=== PATIENT | female | born 1990 | race Caucasian/White ===

== ENCOUNTER 2022-04-23 07:54 | Outpatient (CLI) | payer MEDICAID, SELFPAY ==
--- NOTE | 2022-04-23 08:15 | CRLHL7_ITS ---
For Patients: As a result of the Century Cures Act, medical imaging exams and procedure reports are released immediately into your electronic medical record. You may view this report before your referring provider. If you have questions, please contact your health care provider. INDICATION: Evaluate anatomy. COMPARISON: 02/04/2022 TECHNIQUE: Real time nelson scale imaging of the fetus was performed as well as color Doppler analysis of the umbilical vessels. FINDINGS: Sonographic imaging demonstrates a single living intrauterine gestation. Fetus demonstrates a regular cardiac rate of 132 beats per minute. Fetus has a transverse position, head maternal right. The placenta lies posteriorly without evidence of placenta previa. The edge of the placenta is located 2.5 cm from the internal cervical os. Amniotic fluid volume appears normal. Single deepest vertical pocket: 5.1 cm. The cervix is closed and measures 3.5 cm in length. The composite ultrasound gestational age is calculated at 20 weeks 0 days with an estimated sonographic due date of 09/10/2022. The estimated weight is 320 grams which lies at the 32nd %. The following biometric measurements were obtained: Biparietal diameter: 4.7 cm/20 weeks 1 day 47th% Head circumference: 17.3 cm/19 weeks 6 days 28th% Abdominal circumference: 14.6 cm/19 weeks 6 days 35th% Femur length: 3.2 cm/19 weeks 6 days 34th% The HC/AC ratio measures: 1.19 range (1.08-1.25) On anatomic survey, there is a normal appearance of the cerebral ventricles, cavum septi pellucidi, cisterna magna and cerebellum. The nose, lips, and facial profile appear normal. The cervical, thoracic and lumbar spine are well visualized and appear normal. Incomplete visualization of the four-chamber heart view and the left and right ventricular outflow tracts due to position. The diaphragm and stomach appear normal. The kidneys and bladder also appear normal. There is a normal three-vessel cord and cord insertion site. The four extremities appear normal. IMPRESSION: Incomplete visualization of the four-chamber heart and outflow tracts due to position. Remainder of the anatomic survey appears normal. Short-term follow-up suggested. Sonographic gestational age 20 weeks 0 days and sonographic due date of 09/10/2022. Good correlation with dates. Estimated weight 32nd percentile. Dictated by Gerson Antoine MD @ 04/23/2022 9:44:54 AM (Electronically Signed)
== END 2022-04-23 07:55 | disposition home or self-care (01) ==
PROVIDERS: PCP Family Medicine; Visit Provider Advanced Practice Midwife
DX: Z34.92 Encounter for supervision of normal pregnancy, unspecified, second trimester (principal); Z3A.20 20 weeks gestation of pregnancy
CPT/HCPCS: 76805

== ENCOUNTER 2022-05-22 15:18 | Outpatient (CLI) | payer MEDICAID, SELFPAY ==
[2022-05-22 20:02] LABS: Alanine Aminotransferase* 14 U/L (4-35); Aspartate Amino Transferase* 21 U/L (12-35); Blood Urea Nitrogen* 13 mg/dL (5-24); Creatinine* 0.6 mg/dL (0.5-1.5); Estimated Glomerular Filt Rate 124 ml/min; Uric Acid* 4.8 mg/dL (2.2-8.4)
== END 2022-05-22 15:19 | disposition home or self-care (01) ==
PROVIDERS: PCP Family Medicine; Visit Provider Advanced Practice Midwife
DX: I10 Essential (primary) hypertension (principal)
CPT/HCPCS: 82565; 84450; 84460; 84520; 84550

== ENCOUNTER 2022-05-26 10:24 | Outpatient (CLI) | payer MEDICAID, SELFPAY ==
[2022-05-26 11:51] LABS: Total Protein Urine 10 mg/dL
[2022-05-26 11:54] LABS: Creatinine Urine 57.5 mg/dL
[2022-05-26 12:09] LABS: Collection Time Urine 24 Hours; Total Protein 24 Hour Urine 260 mg/dL; Total Volume 24 Hour Urine 2600 ml; Urine Creatinine mg/24 Hour 0 mg/Day
== END 2022-05-26 10:25 | disposition home or self-care (01) ==
LOC: NFLDREF 10:25
PROVIDERS: PCP Family Medicine; Visit Provider Advanced Practice Midwife
DX: Z34.02 Encounter for supervision of normal first pregnancy, second trimester (principal)
CPT/HCPCS: 82570; 84156

== ENCOUNTER 2022-06-18 16:03 | Outpatient (CLI) | payer MEDICAID, SELFPAY ==
--- OUTSIDE RECORDS SUMMARY | 2022-06-18 08:47 | XMS_ITS | Encounter Summary ---
:1990 Author Organization [facility] Address [address] [place] [address] Care Team Providers Name Role Phone Unavailable Primary Care Provider Unavailable Reason for Visit Reason Onset Date Comments Outpatient COVID-19 Testing 09/21/2020 Encounter Details Date Type Department Care Team Description 09/21/2020 External Outreach Department of [facility], In [facility] Medicine in [facility], Respirato ry ([place], [place] C.N.P., D.N.P. Dx) [address] [facility] [address] [place] [address] [place], [place] [phone] [phone] Social History Tobacco Use Types Packs/Day Years Used Date Smoking Tobacco: Never Assessed Sex Assigned at Date Recorded Not on file documented as of this encounter Progress Notes Alisia Browning - 09/21/2020 2:37 PM CST Encounter created for the drive-through COVID-19 testing. WORKER documented in this encounter Plan of Treatment Not on filedocumented as of this encounter Procedures Procedure Name Priority Date/Time Associated Diagnosis Comme nts SARS CORONAVIRUS-2 Routine 09/21/2020 3:26 PM Infection Upper Results for this RNA, V PIN WORKER Respiratory procedure are i n the results section. documented in this encounter Results SARS Coronavirus-2 RNA, V Symptomatic (09/21/2020 3:26 PM PIN WORKER) [facility] Method Time Signature SARS-CoV-2 Swab, 09/22/2020 MKTO Specimen Nasopharynx 4:24 PM PIN WORKER Source SARS CoV-2 Undetected Undetected 09/22/2020 MKTO RNA, TMA 4:24 PM PIN WORKER Comment: SARS-CoV-2 RNA absent. This result does not rule out COVID-19 in the patient, as the sensitivity of the test depends o n the timing of the specimen collection and the quality of the specim en. Result should be correlated with patient's history and clinical presentat ion. ----ADDITIONAL INFORMATION---- This test is performed using the Aptima SARS-CoV-2 assay ([employer] which has received Emergency Use Authori zation (EUA) by the U.S. Food and Drug Administration. Fact sheets for this Emergency Use Autho rization (EUA) assay can be found at the following links: For Healthcare Providers: https://www.LiveBid a.gov/media/509515/download For Patients: https://www.fda.gov/media/ 719672/download Specimen Anatomical Collection Method Collection Time Receive d Time (Source) Location / / Volume Laterality Varies 09/21/2020 3:26 PM 0 (Nasopharynx) PIN WORKER 11:47 PM PIN WORKER Valdez Mckay APRNNLarry., D.N.P. LAB MICROBIOLOGY - GENERAL ORDERABLES Performing Organization Address City/State/ZIP Code Phon e Number [facility] [address] [place] [phone] [place] [address] [place] [address] System in [address] documented in this encounter Visit Diagnoses Diagnosis Infection Upper Respiratory - Primary documented in this encounter Additional Health Concerns Infection Onset Date Last Indicated Resolved Time COVID19 Pending 09/21/2020 09/21/2020 09/22/2020 4:24 PM PIN WORKER documented as of this encounter
--- OUTSIDE RECORDS SUMMARY | 2022-06-18 08:47 | XMS_ITS | Encounter Summary ---
:1990 Author Organization [facility] Address [address] [place] [address] Care Team Providers Name Role Phone Unavailable Primary Care Provider Unavailable Reason for Visit Reason Comments COVID Inquiry Encounter Details Date Type Department Care Team Description 09/21/2020 Clinical Communication Central Appointment REYNA Ram Office in [address] [phone] Social History Tobacco Use Types Packs/Day Years Used Date Smoking Tobacco: Never Assessed Sex Assigned at Date Recorded Not on file documented as of this encounter Miscellaneous Notes Telephone Encounter - Gerson Nunez - 09/21/2020 2:29 PM CST COVID DOS/PASS Screening What is the patient requesting?: COVID-19 Testing Only (End screening - follow local process) Plan: Endpoint recommendation: Testing indicated, sent patient to [facility] located at [address] [place] [address]. When you arrive in the parking lot, using your camera smartphone scan the QR code on the sign and fill out the online form. If you do not have a smartphone or working camera, please ring the doorbell outside the building for service. Testing hours are M-F 9 am to 4 pm and Sat-Sun 9 am to 12:30pm. and Please avoid using public transportation per CDC recommendation. If you do not have personaltransportation please self-quarantine until a personal transportation option is available. *Reminder if sending patient for testing in T or [facility], an email notification is required. HER EDGER documented in this encounter Plan of Treatment Not on filedocumented as of this encounter Visit Diagnoses Not on filedocumented in this encounter
--- OUTSIDE RECORDS SUMMARY | 2022-06-18 08:47 | XMS_ITS | Clinical Summary ---
:1990 Author Organization [employer] [facility] [employer] [facility] [facility] [place] [address] Care Team Providers Name Role Phone Marcus Nelson MD Primary Care Provider Allergies Active Allergy Reactions Severity Noted Date Comments Codeine Nausea Only 02/16/2007 Hydrocodone-Acetaminophen Nausea Only 05/18/2015 Medications Medication Sig Dispensed Refills Start Date End Date Status mirtazapine (REMERON) 45 mg Take 1 Tablet 30 Tablet 2 02/21/20 22 Active tabletIndications: LILLY (45 mg) by (generalized anxiety mouth at disorder), bedtime. Psychophysiological insomnia ARIPiprazole (Abilify) 2 mg Take 1 Tablet 30 Tablet 2 02/21/20 Active tabletIndications: LILLY (2 mg) by (generalized anxiety mouth once disorder), Major depressive daily. disorder, recurrent episode, moderate (HC) Active Problems Problem Noted Date Major depressive disorder, recurrent episode, moderate 09/12/2015 Cannabis dependence, in remission 12/15/2011 LILLY (generalized anxiety disorder) 11/19/2009 Panic disorder without agoraphobia 10/24/2009 Resolved Problems Problem Noted Date Resolved Date Controlled substance agreement signed 06/16/2018 Overview: Signed by Joann Buckner MD 04/06/18. Valdez Archibald LPN, 06/16/2018, 7:31 AM Controlled substance agreement signed 04/08/2018 Controlled substance agreement signed 04/13/2017 Overview: Signed: 04/02/16 Dr. Magen Aquino MD / psychiatry Depressive disorder, not elsewhere classified 01/08/2011 09/12/2015 Cannabis dependence, continuous 09/09/2010 12/15/19 12 Immunizations Name Administration Dates Next Due MMR 12/22/2003 Family History Medical History Relation Name Comments Psychiatric illness Father anxiety Stroke Father Psychiatric illness Maternal Aunt anxiety Relation Name Status Comments Father Alive Half-Brother Alive Half-Sister Alive Maternal Aunt Mother Alive Social History Tobacco Use Types Packs/Day Years Used Date Never Smoker Smokeless Tobacco: Never Used Tobacco Cessation: Counseling Given: Yes Alcohol Use Standard Drinks/Week Comments No 0 (1 standard drink = 0.6 oz pure alcoho l) Sex Assigned at Date Recorded Female 12/12/2021 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 History Last Filed Vital Signs Vital Sign Reading Time Taken Comments Blood Pressure 130/86 06/14/2019 12:44 PM CDT Pulse 65 05/03/2020 3:18 PM patient repor danny CDT Temperature - - Respiratory Rate - - Oxygen Saturation 98% 09/12/2015 10:35 AM TALENT DIRECTOR Inhaled Oxygen Concentration - - Weight 105.2 kg (232 lb) 05/03/2020 3:18 PM patient rep orted CDT Height 162.6 cm (5' 4) 05/03/2020 3:18 PM patient repo rted CDT Body Mass Index 39.82 05/03/2020 3:18 PM CDT Plan of Treatment Health Maintenance Due Date Last Done Comments Tdap 2003 Hepatitis C screening for age 0704/25/2010 18-79 Pap test for age 21-65 05/28/2020 05/28/2017, 01/26/2014, 11/04/2011 BMI (ht and wt on same day) for 05/03/2021 05/03/2020, 11/0 05/2018, age 18+ 04/02/2016, Additional history exists Influenza for age 9-49 06/19/2022 Tetanus booster 01/13/2023 01/13/2013 (Completed outside of [facility]) Depression screening for age 12+ 02/20/2023 02/20/2022, , 12/12/2021, Additional history exists COVID-19 vaccine series Completed 09/02/2021, 03/05/2021, 02/12/2021 Results Not on filefrom Last 3 Months Insurance Payer Benefit Plan / Subscriber ID Effective Dates Phone Addre ss Type Group ESTRELLA DE [place] ROSA [place] [id number] 2021-Present [address] [place] [address] Care Teams Adobe Maker Relationship Specialty Start Date End Date aMrcus Nelson MD PCP - General Family Practice 04/02/16
--- OUTSIDE RECORDS SUMMARY | 2022-06-18 08:47 | XMS_ITS | Clinical Summary ---
:1990 Author Organization [facility] Address [address] [place] [address] Care Team Providers Name Role Phone Unavailable Primary Care Provider Unavailable Source Comments Patient records contain information from all sites at [facility]. For routine questions regarding patient records, call [phone] during business hours, M-F 8:00 AM - 5:00 PM Central Time. Record requests for emergency care only can be directed to [phone] at any time.[facility] Social History Tobacco Use Types Packs/Day Years Used Date Smoking Tobacco: Never Assessed Sex Assigned at Date Recorded Not on file Plan of Treatment Health Maintenance Due Date Last Done Comments Cervical Cancer Screening 1992 HIV Screening 1990 Hepatitis B Vaccines (1 of 1992 3 - 3-dose series) Hepatitis C Screening 1992 Depression Screening 10/19/2021 (Annual PHQ-2) Influenza Vaccine (#1) 2022 08/09/2020, 08/24/2017, 07/03/2016, Additional history exists DTaP,Tdap,and Td Vaccines 01/19/2023 01/19/2013, 12/22/2003 (3 - Td or Tdap) COVID-19 Vaccine Completed 09/02/2021, 03/05/2021, 02/12/2021 Pneumococcal vaccine (0-64 Aged Out No lo nger eligible years) based on patient 's age to complete this topic Insurance Payer Benefit Plan Subscriber ID Effective Dates Phone Address Type / Group [facility] [id number] 2021-Sree [phone] [address] Medicaid HMO t [address] [place] [address]
[2022-06-19 10:14] LABS: Rapid Plasma Reagin (RPR) Non Reactive (Non Reactive)
== END 2022-06-18 16:04 | disposition home or self-care (01) ==
PROVIDERS: PCP Family Medicine; Visit Provider Advanced Practice Midwife
DX: Z34.90 Encounter for supervision of normal pregnancy, unspecified, unspecified trimester (principal)
CPT/HCPCS: 86592

== ENCOUNTER 2022-06-26 09:30 | Outpatient (CLI) | payer MEDICAID, SELFPAY ==
[2022-06-26 08:49] LABS: Glucose Fasting Check 106 mg/dl (60-115)
--- OUTSIDE RECORDS SUMMARY | 2022-06-26 08:53 | XMS_ITS | Clinical Summary ---
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 Obstetrics History Last Filed Vital Signs Vital Sign Reading Time Taken Comments Blood Pressure 130/86 06/14/2019 12:44 PM CDT Pulse 65 05/03/2020 3:18 PM patient repor danny CDT Temperature - - Respiratory Rate - - Oxygen Saturation 98% 09/12/2015 10:35 AM WRAPPER SIZER Inhaled Oxygen Concentration - - Weight 105.2 [...] Tetanus booster 01/13/2023 01/13/2013 (Completed outside of [facility]) Depression screening for age 12+ 02/20/2023 02/20/2022, , 12/12/2021, Additional history exists COVID-19 vaccine series Completed 09/02/2021, 03/05/2021, 02/12/2021 Results Not on filefrom Last 3 Months Insurance Payer Benefit Plan / Subscriber ID Effective Dates Phone Addre ss Type Group ESTRELLA DE [place] ROSA [place] [id number] 2021-Present [address] [place] [address] Care Teams Calliope Player Relationship Specialty Start Date End Date Marcus Nelson MD PCP - General Family Practice 04/02/16
--- OUTSIDE RECORDS SUMMARY | 2022-06-26 08:53 | XMS_ITS | Clinical Summary ---
:1990 Author Organization [facility] Address [address] [place] [address] Care Team Providers Name Role Phone Unavailable Primary Care Provider Unavailable Source Comments Patient records contain information from all sites at [facility]. For routine questions regarding patient records, call [phone] during business hours, M-F 8:00 AM - 5:00 PM Central Time. Record requests for emergency care only can be directed to [phone] at any time.[facility] Social History Tobacco Use Types Packs/Day [...] Effective Dates Phone Address Type / Group [facility] [id number] 2021-Sree [phone] [address] Medicaid HMO t [address] [place] [address]
--- OUTSIDE RECORDS SUMMARY | 2022-06-26 08:53 | XMS_ITS | Encounter Summary ---
:1990 Author Organization [facility] Address [address] [place] [address] Care Team Providers Name Role Phone Unavailable Primary Care Provider Unavailable Reason for Visit Reason Comments COVID Inquiry Encounter Details Date Type Department Care Team Description 09/21/2020 Clinical Communication Central Appointment REYNA Ram Office in [address] [id number] Social History Tobacco Use Types Packs/Day Years Used Date Smoking Tobacco: Never Assessed Sex Assigned at Date Recorded Not on file documented as of this encounter Miscellaneous Notes Telephone Encounter - Gerson Nunez - 09/21/2020 2:29 PM CST COVID DOS/PASS Screening What is the patient requesting?: COVID-19 Testing Only (End screening - follow local process) Plan: Endpoint recommendation: Testing indicated, sent patient to [facility] located at [address] [place] [address]. When you arrive in the parking lot, [...] sending patient for testing in T or [facility], an email notification is required. E MINER documented in this encounter Plan of Treatment Not on filedocumented as of this encounter Visit Diagnoses Not on filedocumented in this encounter
--- OUTSIDE RECORDS SUMMARY | 2022-06-26 08:53 | XMS_ITS | Encounter Summary ---
:1990 Author Organization [facility] Address [address] [place] [address] Care Team Providers Name Role Phone Unavailable Primary Care Provider Unavailable Reason for Visit Reason Onset Date Comments Outpatient COVID-19 Testing 09/21/2020 Encounter Details Date Type Department Care Team Description 09/21/2020 External Outreach Department of [facility], In [facility] Medicine in [facility], Respirato ry ([place], [place] C.N.P., D.N.P. Dx) [address] [facility] [address] [place] [address] [place], [place] [phone] Social History Tobacco Use Types Packs/Day Years Used Date Smoking Tobacco: Never Assessed Sex Assigned at Date Recorded Not on file documented as of this encounter Progress Notes Alisia Browning - 09/21/2020 2:37 PM CST Encounter created for the drive-through COVID-19 testing. MAKER documented in this encounter Plan of Treatment Not on filedocumented as of this encounter Procedures Procedure Name Priority Date/Time Associated Diagnosis Comme nts SARS CORONAVIRUS-2 Routine 09/21/2020 3:26 PM Infection Upper Results for this RNA, V BODY MAKER Respiratory procedure are i n the results section. documented in this encounter Results SARS Coronavirus-2 RNA, V Symptomatic (09/21/2020 3:26 PM BODY MAKER) [facility] Method Time Signature SARS-CoV-2 Swab, 09/22/2020 MKTO Specimen Nasopharynx 4:24 PM BODY MAKER Source SARS CoV-2 Undetected Undetected 09/22/2020 MKTO RNA, TMA 4:24 PM BODY MAKER Comment: SARS-CoV-2 RNA absent. This result does not rule out COVID-19 in the patient, as the sensitivity of the test depends o n the timing of the specimen collection and the quality of the specim en. Result should be correlated with patient's history and clinical presentat ion. ----ADDITIONAL INFORMATION---- This test is performed using the Aptima SARS-CoV-2 assay ([employer] which has received Emergency Use Authori zation (EUA) by the U.S. Food and Drug Administration. Fact sheets for this Emergency Use Autho rization (EUA) assay can be found at the following links: For Healthcare Providers: https://www.Qvolve a.gov/media/527869/download For Patients: https://www.fda.gov/media/ 507174/download Specimen Anatomical Collection Method Collection Time Receive d Time (Source) Location / / Volume Laterality Varies 09/21/2020 3:26 PM 0 (Nasopharynx) BODY MAKER 11:47 PM BODY MAKER Valdez Mckay APRNNLarry., D.N.P. LAB MICROBIOLOGY - GENERAL ORDERABLES Performing Organization Address City/State/ZIP Code Phon e Number [facility]- [address] [place] [phone] [place] [address] [place] [address] System [address] documented in this encounter Visit Diagnoses Diagnosis Infection Upper Respiratory - Primary documented in this encounter Additional Health Concerns Infection Onset Date Last Indicated Resolved Time COVID19 Pending 09/21/2020 09/21/2020 09/22/2020 4:24 PM BODY MAKER documented as of this encounter
[2022-06-26 13:09] LABS: Glucose GTT-Gestational 3 Hr 68 mg/dl (70-140)
[2022-06-26 13:09] LABS: Glucose 1 Hour Gest 194 mg/dl (70-180)
== END 2022-06-26 09:31 | disposition home or self-care (01) ==
PROVIDERS: PCP Family Medicine; Visit Provider Advanced Practice Midwife
DX: Z34.90 Encounter for supervision of normal pregnancy, unspecified, unspecified trimester (principal)
CPT/HCPCS: 82951; 82952

== ENCOUNTER 2022-07-17 12:42 | Outpatient (CLI) | payer MEDICAID, SELFPAY ==
--- OUTSIDE RECORDS SUMMARY | 2022-07-17 12:44 | XMS_ITS | Clinical Summary ---
:1990 Author Organization [facility] Address [address] [place] [address] Care Team Providers Name Role Phone Unavailable Primary Care Provider Unavailable Source Comments Patient records contain information from all sites at [facility]. For routine questions regarding patient records, call [phone] during business hours, M-F 8:00 AM - 5:00 PM Central Time. Record requests for emergency care only can be directed to [phone] at any time.[facility] Social History Tobacco Use Types Packs/Day Years Used Date Smoking Tobacco: Never Assessed Sex Assigned at Date Recorded Not on file Plan of Treatment Health Maintenance Due Date Last Done Comments Cervical Cancer Screening 1992 HIV Screening 1992 Hepatitis B Vaccines (1 of 1992 3 - 3-dose series) Hepatitis C Screening 1992 Depression Screening 10/19/2021 (Annual PHQ-2) COVID-19 Vaccine (4 - 10/28/2021 09/02/2021, 03/05/2021, Booster for Pfizer series) 02/12/2021 Influenza Vaccine (#1) 2022 08/09/2020, 08/24/2017, 07/03/2016, Additional history exists DTaP,Tdap,and Td Vaccines 01/19/2023 01/19/2013, 12/22/2003 (3 - Td or Tdap) Pneumococcal vaccine (0-64 Aged Out No lo nger eligible years) based on patient 's age to complete this topic Insurance Payer Benefit Plan Subscriber ID Effective Dates Phone Address Type / Group [facility] [id number] 2021-Sree [phone] [address] Medicaid HMO t [address] [place] [address]
--- OUTSIDE RECORDS SUMMARY | 2022-07-17 12:44 | XMS_ITS | Clinical Summary ---
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 Obstetrics History Last Filed Vital Signs Vital Sign Reading Time Taken Comments Blood Pressure 130/86 06/14/2019 12:44 PM CDT Pulse 65 05/03/2020 3:18 PM patient repor danny CDT Temperature - - Respiratory Rate - - Oxygen Saturation 98% 09/12/2015 10:35 AM DE ICER ELEMENT WINDER Inhaled Oxygen Concentration - - Weight 105.2 [...] Tetanus booster 01/13/2023 01/13/2013 (Completed outside of [facility]) Depression screening for age 12+ 02/20/2023 02/20/2022, , 12/12/2021, Additional history exists COVID-19 vaccine series Completed 09/02/2021, 03/05/2021, 02/12/2021 Results Not on filefrom Last 3 Months Insurance Payer Benefit Plan / Subscriber ID Effective Dates Phone Addre ss Type Group ESTRELLA DE [place]A [place] [id number] 2021-Present [address] [place] [address] Care Teams Supplier Specialist Relationship Specialty Start Date End Date Marcus Nelson MD PCP - General Family Practice 04/02/16
--- OUTSIDE RECORDS SUMMARY | 2022-07-17 12:44 | XMS_ITS | Encounter Summary ---
:1990 Author Organization [facility] Address [address] [place] [address] Care Team Providers Name Role Phone Unavailable Primary Care Provider Unavailable Reason for Visit Reason Comments COVID Inquiry Encounter Details Date Type Department Care Team Description 09/21/2020 Clinical Communication Central Appointment REYNA Ram Office in [address] [phone] Social History Tobacco Use Types Packs/Day Years Used Date Smoking Tobacco: Never Assessed Sex Assigned at Date Recorded Not on file documented as of this encounter Miscellaneous Notes Telephone Encounter - Gerson Nunez - 09/21/2020 2:29 PM CST COVID DOS/PASS Screening What is the patient requesting?: COVID-19 Testing Only (End screening - follow local process) Plan: Endpoint recommendation: Testing indicated, sent patient to [facility] located at [address] [place] [address]. When you arrive in the parking lot, [...] sending patient for testing in T or [facility], an email notification is required. R HELPER documented in this encounter Plan of Treatment Not on filedocumented as of this encounter Visit Diagnoses Not on filedocumented in this encounter
--- NOTE | 2022-07-17 13:00 | CRLHL7_ITS ---
For Patients: As a result of the Century Cures Act, medical imaging exams and procedure reports are released immediately into your electronic medical record. You may view this report before your referring provider. If you have questions, please contact your health care provider. INDICATION: Third trimester scan, evaluate growth. History of COVID, gestational diabetes. COMPARISON: 04/23/2022 TECHNIQUE: Real time nelson scale imaging of the fetus was performed. FINDINGS: Sonographic imaging demonstrates a single living intrauterine gestation. Fetus demonstrates a regular cardiac rate of 129 beats per minute. Fetus has a vertex position. The placenta lies posterior. Amniotic fluid volume appears normal and there is a single deepest vertical pocket: 5.8 cm. The estimated weight is 2116gm which lies at the 66th %. On the prior OB ultrasound exam dated 04/23/2022 the estimated weight was at the 32nd%. BPD 92nd percentile. HC 88th percentile. AC 77th percentile. FL 21st percentile. The HC/AC ratio measures 1.08 range (0.95-1.11). IMPRESSION: Bilateral pelviectasis measuring 10 millimeters on the left and 7 millimeters on the right. This is considered abnormal in the 3rd trimester and continued follow-up is recommended at 36 weeks. Sonographic gestational age 33 weeks 4 days and sonographic due date 08/31/2022. Sonographic age 9 days ahead of the clinical age. Estimated weight 66th percentile. Abdominal circumference 77th percentile. Dictated by Gerson Antoine MD @ 07/18/2022 10:57:25 AM (Electronically Signed)
== END 2022-07-17 12:43 | disposition home or self-care (01) ==
LOC: US 12:42
PROVIDERS: PCP Family Medicine; Visit Provider Advanced Practice Midwife
DX: O24.410 Gestational diabetes mellitus in pregnancy, diet controlled (principal); Z3A.32 32 weeks gestation of pregnancy
CPT/HCPCS: 76816

== ENCOUNTER 2022-08-13 08:24 | Outpatient (CLI) | payer MEDICAID, SELFPAY ==
--- OUTSIDE RECORDS SUMMARY | 2022-08-13 08:25 | XMS_ITS | Clinical Summary ---
:1990 Author Organization [facility] [place] [address] Care Team Providers Name Role Phone Marcus [...] at Date Recorded Female 12/12/2021 8:07 AM FORENSIC PSYCHIATRIST Obstetrics History Last Filed Vital Signs Vital Sign Reading Time Taken Comments Blood Pressure 130/86 06/14/2019 12:44 PM CDT Pulse 65 05/03/2020 3:18 PM patient repor danny CDT Temperature - - Respiratory Rate - - Oxygen Saturation 98% 09/12/2015 10:35 AM FORENSIC PSYCHIATRIST Inhaled Oxygen Concentration - - Weight 105.2 [...] 05/2018, age 18+ 04/02/2016, Additional history exists COVID-19 vaccine series (4 - 10/28/2021 09/02/2021, 021, Booster for Pfizer series) 02/12/2021 Influenza for age 9-49 06/19/2022 Tetanus booster 01/13/2023 01/13/2013 [facility] Depression screening for age 12+ 02/20/2023 02/20/2022, , 12/12/2021, Additional history exists Results Not on filefrom Last 3 Months Insurance Payer Benefit Plan / Subscriber ID Effective Dates Phone Addre ss Type Group ESTRELLA DE LA ROSA [place] [id number] 2021-Present [address] [place] [address] Care Teams Title One Teacher Relationship Specialty Start Date End Date Marcus Nelson MD PCP - General Family Practice 04/02/16
--- OUTSIDE RECORDS SUMMARY | 2022-08-13 08:26 | XMS_ITS | Encounter Summary ---
:1990 Author Organization [facility] Address [address] [place] [address] Care Team Providers Name Role Phone Unavailable Primary Care Provider Unavailable Reason for Visit Reason Onset Date Comments Outpatient COVID-19 Testing 09/21/2020 Encounter Details Date Type Department Care Team Description 09/21/2020 External Outreach Department of [facility], In [facility] Medicine in [facility], Respirato ry ([place], [place] C.N.P., D.N.P. Dx) [address] [facility] [address] [place] [address] [place], [place] [phone] Social History Tobacco Use Types Packs/Day Years Used Date Smoking Tobacco: Never Assessed Sex Assigned at Date Recorded Not on file documented as of this encounter Progress Notes Alisia Browning - 09/21/2020 2:37 PM CST Encounter created for the drive-through COVID-19 testing. R SETTER documented in this encounter Plan of Treatment Not on filedocumented as of this encounter Procedures Procedure Name Priority Date/Time Associated Diagnosis Comme nts SARS CORONAVIRUS-2 Routine 09/21/2020 3:26 PM Infection Upper Results for this RNA, V MOTOR SETTER Respiratory procedure are i n the results section. documented in this encounter Results SARS Coronavirus-2 RNA, V Symptomatic (09/21/2020 3:26 PM MOTOR SETTER) [facility] Method Time Signature SARS-CoV-2 Swab, 09/22/2020 MKTO Specimen Nasopharynx 4:24 PM MOTOR SETTER Source SARS CoV-2 Undetected Undetected 09/22/2020 MKTO RNA, TMA 4:24 PM MOTOR SETTER Comment: SARS-CoV-2 RNA absent. This result does not rule out COVID-19 in the patient, as the sensitivity of the test depends o n the timing of the specimen collection and the quality of the specim en. Result should be correlated with patient's history and clinical presentat ion. ----ADDITIONAL INFORMATION---- This test is performed using the Aptima SARS-CoV-2 assay ([employer] which has received Emergency Use Authori zation (EUA) by the U.S. Food and Drug Administration. Fact sheets for this Emergency Use Autho rization (EUA) assay can be found at the following links: For Healthcare Providers: https://www.GOOD a.gov/media/148496/download For Patients: https://www.fda.gov/media/ 592385/download Specimen Anatomical Collection Method Collection Time Receive d Time (Source) Location / / Volume Laterality Varies 09/21/2020 3:26 PM 0 (Nasopharynx) MOTOR SETTER 11:47 PM MOTOR SETTER Valdez Mckay APRNNLarry., D.N.P. LAB MICROBIOLOGY - GENERAL ORDERABLES Performing Organization Address City/State/ZIP Code Phon e Number [facility]- [address] [place] [phone] [place] [address] [place] [address] [address] documented in this encounter Visit Diagnoses Diagnosis Infection Upper Respiratory - Primary documented in this encounter Additional Health Concerns Infection Onset Date Last Indicated Resolved Time COVID19 Pending 09/21/2020 09/21/2020 09/22/2020 4:24 PM MOTOR SETTER documented as of this encounter
--- OUTSIDE RECORDS SUMMARY | 2022-08-13 08:26 | XMS_ITS | Encounter Summary ---
:1990 Author Organization [facility] Address [address] [place] [address] Care Team Providers Name Role Phone Unavailable Primary Care Provider Unavailable Reason for Visit Reason Comments COVID Inquiry Encounter Details Date Type Department Care Team Description 09/21/2020 Clinical Communication Central Appointment REYNA Ram Office in [address] [phone] Social History Tobacco Use Types Packs/Day Years Used Date Smoking Tobacco: Never Assessed Sex Assigned at Date Recorded Not on file documented as of this encounter Miscellaneous Notes Telephone Encounter - Gerson Nunez - 09/21/2020 2:29 PM CST COVID DOS/PASS Screening What is the patient requesting?: COVID-19 Testing Only (End screening - follow local process) Plan: Endpoint recommendation: Testing indicated, sent patient to [facility] located at [address] [place] [address]. When you arrive in the parking lot, [...] sending patient for testing in T or [facility], an email notification is required. MAN documented in this encounter Plan of Treatment Not on filedocumented as of this encounter Visit Diagnoses Not on filedocumented in this encounter
--- OUTSIDE RECORDS SUMMARY | 2022-08-13 08:26 | XMS_ITS | Clinical Summary ---
:1990 Author Organization [facility] Address [address] [place] [address] Care Team Providers Name Role Phone Unavailable Primary Care Provider Unavailable Source Comments Patient records contain information from all sites at [facility]. For routine questions regarding patient records, call [phone] during business hours, M-F 8:00 AM - 5:00 PM Central Time. Record requests for emergency care only can be directed to [phone] at any time.[facility] Social History Tobacco Use Types Packs/Day [...] Dates Phone Address Type / Group [facility] [id number] 2021-Sree [phone] [address] Medicaid HMO [address] [place] [address]
--- NOTE | 2022-08-13 08:45 | CRLHL7_ITS ---
For Patients: As a result of the Century Cures Act, medical imaging exams and procedure reports are released immediately into your electronic medical record. You may view this report before your referring provider. If you have questions, please contact your health care provider. INDICATION: Third trimester scan, evaluate growth. Covid in , GDM COMPARISON: 07/17/2022 TECHNIQUE: Real time nelson scale imaging of the fetus was performed. FINDINGS: Sonographic imaging demonstrates a single living intrauterine gestation. Fetus demonstrates a regular cardiac rate of 122 beats per minute. Fetus has a vertex position. The placenta lies posteriorly. Amniotic fluid volume appears normal and there is a single deepest vertical pocket: 6.9 cm. The estimated weight is 2995gm which lies at the 66th %. On the prior OB ultrasound exam dated 07/17/2022 the estimated weight was at the 66th%. BPD 92nd percentile. HC 84th percentile. AC 79th percentile. FL 15th percentile. The HC/AC ratio measures 1.03 range (0.92-1.05). IMPRESSION: Sonographic gestational age 37 weeks 0 days and a sonographic due date of 09/03/2022. Sonographic age is 6 days ahead of the clinical age. Estimated weight 66th percentile. Abdominal circumference 79th percentile. Dictated by Gerson Antoine MD @ 08/13/2022 9:46:41 AM (Electronically Signed)
== END 2022-08-13 08:25 | disposition home or self-care (01) ==
PROVIDERS: PCP Family Medicine; Visit Provider Advanced Practice Midwife
DX: O24.419 Gestational diabetes mellitus in pregnancy, unspecified control (principal); O98.513 Other viral diseases complicating pregnancy, third trimester; U07.1 COVID-19; Z3A.36 36 weeks gestation of pregnancy
CPT/HCPCS: 76816

== ENCOUNTER 2022-08-21 10:32 | Outpatient (CLI) | payer MEDICAID, SELFPAY ==
--- OUTSIDE RECORDS SUMMARY | 2022-08-21 10:46 | XMS_ITS | Clinical Summary ---
:1990 Author Organization [facility] Address [address] [place] [address] Care Team Providers Name Role Phone Unavailable Primary Care Provider Unavailable Source Comments Patient records contain information from all sites at [facility]. For routine questions regarding patient records, call [phone] during business hours, M-F 8:00 AM - 5:00 PM Central Time. Record requests for emergency care only can be directed to [phone] at any time.[facility] Social History Tobacco Use Types Packs/Day Years [...] 09/02/2021, 03/05/2021, Booster for Pfizer series) 02/12/2021 DTaP,Tdap,and Td Vaccines 12/07/2031 12/07/2021, 01/19/2013 , (4 - Td or Tdap) 12/22/2003 Influenza Vaccine Completed 07/24/2022, 08/09/2020, 08/24/2017, Additional history exists Pneumococcal vaccine (0-64 Aged Out No lo nger eligible years) based on patient 's age to complete this topic Insurance Payer Benefit Plan Subscriber ID Effective Dates Phone Address Type / Group [facility]ARE [facility] [id number] 2021-Presdamian [phone] [address] Medicaid HMO t [address] [place] [address]
--- OUTSIDE RECORDS SUMMARY | 2022-08-21 10:46 | XMS_ITS | Clinical Summary ---
:1990 Author Organization [facility] [place] [address] Care Team Providers Name Role Phone Marcus [...] at Date Recorded Female 12/12/2021 8:07 AM POWER ORIGINATOR Obstetrics History Last Filed Vital Signs Vital Sign Reading Time Taken Comments Blood Pressure 130/86 06/14/2019 12:44 PM CDT Pulse 65 05/03/2020 3:18 PM patient repor danny CDT Temperature - - Respiratory Rate - - Oxygen Saturation 98% 09/12/2015 10:35 AM POWER ORIGINATOR Inhaled Oxygen Concentration - - Weight 105.2 [...] Tetanus booster 01/13/2023 01/13/2013 [facility] Depression screening for age 12+ 02/20/2023 02/20/2022, , 12/12/2021, Additional history exists Results Not on filefrom Last 3 Months Insurance Payer Benefit Plan / Subscriber ID Effective Dates Phone Addre ss Type Group ESTRELLA DE LA ROSA [place] [id number] 2021-Present [address] [place] [address] Care Teams Control Clerk Food And Beverage Relationship Specialty Start Date End Date Marcus Nelson MD PCP - General Family Practice 04/02/16
--- OUTSIDE RECORDS SUMMARY | 2022-08-21 10:46 | XMS_ITS | Encounter Summary ---
:1990 Author Organization [facility] Address [address] [place] [address] Care Team Providers Name Role Phone Unavailable Primary Care Provider Unavailable Reason for Visit Reason Comments COVID Inquiry Encounter Details Date Type Department Care Team Description 09/21/2020 Clinical Communication Central Appointment REYNA Ram Office in [address] [phone] Social History Tobacco Use Types Packs/Day Years Used Date Smoking Tobacco: Never Assessed Sex Assigned at Date Recorded Not on file documented as of this encounter Miscellaneous Notes Telephone Encounter - Gerson Nunez - 09/21/2020 2:29 PM CST COVID DOS/PASS Screening What is the patient requesting?: COVID-19 Testing Only (End screening - follow local process) Plan: Endpoint recommendation: Testing indicated, sent patient to [facility] located at [address] [place] [address]. When you arrive in the parking lot, [...] sending patient for testing in T or [facility], an email notification is required. R CHIPPER MACHINE OPERATOR documented in this encounter Plan of Treatment Not on filedocumented as of this encounter Visit Diagnoses Not on filedocumented in this encounter
--- OUTSIDE RECORDS SUMMARY | 2022-08-21 10:46 | XMS_ITS | Encounter Summary ---
:1990 Author Organization [facility] Address [address] [place] [address] Care Team Providers Name Role Phone Unavailable Primary Care Provider Unavailable Reason for Visit Reason Onset Date Comments Outpatient COVID-19 Testing 09/21/2020 Encounter Details Date Type Department Care Team Description 09/21/2020 External Outreach Department of [facility], In [facility] Medicine in [facility], Respirato ry ([place], [place] C.N.P., D.N.P. Dx) [address] [facility] [address] [place] [address] [place], [place] [phone] [phone] Social History Tobacco Use Types Packs/Day Years Used Date Smoking Tobacco: Never Assessed Sex Assigned at Date Recorded Not on file documented as of this encounter Progress Notes Alisia Browning - 09/21/2020 2:37 PM CST Encounter created for the drive-through COVID-19 testing. RWRITING SUPPORT MANAGER documented in this encounter Plan of Treatment Not on filedocumented as of this encounter Procedures Procedure Name Priority Date/Time Associated Diagnosis Comme nts SARS CORONAVIRUS-2 Routine 09/21/2020 3:26 PM Infection Upper Results for this RNA, V UNDERWRITING SUPPORT MANAGER Respiratory procedure are i n the results section. documented in this encounter Results SARS Coronavirus-2 RNA, V Symptomatic (09/21/2020 3:26 PM UNDERWRITING SUPPORT MANAGER) [facility] Method Time Signature SARS-CoV-2 Swab, 09/22/2020 MKTO Specimen Nasopharynx 4:24 PM UNDERWRITING SUPPORT MANAGER Source SARS CoV-2 Undetected Undetected 09/22/2020 MKTO RNA, TMA 4:24 PM UNDERWRITING SUPPORT MANAGER Comment: SARS-CoV-2 RNA absent. This result does not rule out COVID-19 in the patient, as the sensitivity of the test depends o n the timing of the specimen collection and the quality of the specim en. Result should be correlated with patient's history and clinical presentat ion. ----ADDITIONAL INFORMATION---- This test is performed using the Aptima SARS-CoV-2 assay ([employer] which has received Emergency Use Authori zation (EUA) by the U.S. Food and Drug Administration. Fact sheets for this Emergency Use Autho rization (EUA) assay can be found at the following links: For Healthcare Providers: https://www.[employer] a.gov/media/450515/download For Patients: https://www.fda.gov/media/ 876913/download Specimen Anatomical Collection Method Collection Time Receive d Time (Source) Location / / Volume Laterality Varies 09/21/2020 3:26 PM 0 (Nasopharynx) UNDERWRITING SUPPORT MANAGER 11:47 PM UNDERWRITING SUPPORT MANAGER Valdez Mckay APRNNLarry., D.N.P. LAB MICROBIOLOGY - GENERAL ORDERABLES Performing Organization Address City/State/ZIP Code Phon e Number [facility]- [address] [place] [phone] [place] [address] [place] [address] System in [address] documented in this encounter Visit Diagnoses Diagnosis Infection Upper Respiratory - Primary documented in this encounter Additional Health Concerns Infection Onset Date Last Indicated Resolved Time COVID19 Pending 09/21/2020 09/21/2020 09/22/2020 4:24 PM UNDERWRITING SUPPORT MANAGER documented as of this encounter
[2022-08-22 13:05] LABS: Strep B DNA Probe NEGATIVE (Negative)
== END 2022-08-21 10:33 | disposition home or self-care (01) ==
LOC: NFLDREF 10:32
PROVIDERS: PCP Family Medicine; Visit Provider Advanced Practice Midwife
DX: Z34.93 Encounter for supervision of normal pregnancy, unspecified, third trimester (principal); Z3A.37 37 weeks gestation of pregnancy
CPT/HCPCS: 87081; 87653

== ENCOUNTER 2022-09-03 06:58 | Inpatient (IN) | payer MEDICAID, SELFPAY ==
[2022-09-03] VITALS (36 sets, daily range): BP systolic 133–196; BP diastolic 61–101; PULSE 61–93; RESP 18; TEMP 36.6–36.9; BMI 49.5
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
[2022-09-03] MEDS: miSOPROStoL 25 MCG/0.25 TABLET VAGINAL ×2 (08:19→13:08)
[2022-09-03 08:21] LABS: SARS PCR* POSITIVE SARS-CoV-2 (Negative)
[2022-09-03] MEDS: LABETALOL HCL 5 MG/ML inj IVP ×3 (12:47→18:57)
[2022-09-03] MEDS: LACTATED RINGERS 1000 ML 1,000 ML 75 ML IV (12:48)
[2022-09-03 13:30] LABS: Hematocrit 38.8 % (33.0-51.0); Hemoglobin* 13.1 gm/dL (12.0-16.0); Mean Corpuscular HGB Conc 34 gm/dL (32-36); Mean Corpuscular Hemoglobin 30 pg (26-34); Mean Corpuscular Volume 88 fL (80-100); Platelet Count* 297 K/uL (140-440); Red Blood Count 4.41 m/uL (4.00-5.20); White Blood Count* 9.72 K/uL (4.50-11.00)
[2022-09-03 13:38] LABS: Total Protein Urine 11 mg/dL
[2022-09-03 13:39] LABS: Creatinine Urine 95.7 mg/dL
[2022-09-03 13:43] LABS: Slide Review Reflex No
[2022-09-03 14:07] LABS: INR 0.91 (0.91-1.10); Prothrombin Time 12.9 Seconds
[2022-09-03 14:08] LABS: Fibrinogen* 646 mg/dL (200-450)
--- NOTE | 2022-09-03 14:08 | PM.OBPNL ---
Subjective Time Seen by Provider: 13:00 Date Seen: 09/03/22 Narrative: Irina is a 32-year-old G1 at 39 weeks 1 day by LMP, who presents for IOL due to gestational diabetes. Her , Zurdo, is with her. She was originally a CNM patient who ruled in for PreEwSF features based on severe ranging BP requiring IV antihypertensive (labetalol x1). Patient did not have a diagnosis of GHTN or PreE prior to this. Currently asymptomatic. Denies any headaches, vision changes, right upper quadrant pain, shortness of breath, or rapidly expanding edema. She's a runny nose and subsequently ruled in for COVID+ infection on admission. No other symptoms. On contract precautions. Her cervical exam on admission was fingertip. She's had 1 dose of cytotec and feeling some contractions. Objective Exam: Physical exam: General: No acute distress Psych: Alert and oriented x3, full affect HEENT: Normocephalic, atraumatic Abdomen: Gravid, soft, no tenderness in between contractions, no rebound, or guarding. Skin: No lesions or rashes Lower extremities: 2+ edema bilaterally Pelvic exam: SVE: ft/thi/hi Vital Signs: Last Vital Signs Temp 98.1 F 09/03/22 12:10 Pulse 89 09/03/22 14:08 Resp 18 09/03/22 12:10 BP 142/73 H 09/03/22 14:08 Plan Plan: #IOL - IOL at 39w1d 2/2 to A1GDM - SVE: ft/thi/hi after one dose of cytotec. I placed a second dose of cytotec at 1300. - Plan: reevaluate in 4 hours. I discussed with patient that she might benefit from mechanical cervical dilator as well. I explained to patient that a fernandez balloon is and she's amenable to it. Will place fernandez balloon if she is less than 3 cm. #PreEwSF - Dx intrapartum based on severe ranging BP requiring 20 mg of labetalol - BP since then has been: 130-140s/70s. Target BP <160/110 - Currently on mag sulfate for seizure ppx: 4 g loading, then 2 g maintainence - We discussed complications to the mother from the disease including risk of stroke, seizure, worsening hypertension, and abruption. We explained to the patient that although immediate delivery will cure the disease of preeclampsia, it does not mean she needs a delivery. Will continue with IOL - Baseline PreE labs: hgb 13.1, plt 297, ALT 19, AST 35, Cr 0.6 - Coag with INR 0.91 and fibrinogen 646 - Strict I/Os - Will continue to monitor BP and symptoms #A1GDM - Failed early 1 hr, normal 1 hr, and 3 hr screening - On LDA QD - Will monitor BG during labor #Obesity - Pre-preganncy BMI 36.7 - She had a 75 lb weight gain during (210 to 285lb) - Was seeing a universal grinder tool - Discussed with patient that obese women have increased risk of cardiac dysfunction, proteinuria, sleep apnea, nonalcoholic fatty liver disease, gestational diabetes mellitus, preeclampsia, and stillbirth. Obese women are at increased risk of delivery, failed trial of labor, endometritis, wound rupture or dehiscence, and venous thrombosis. Long-term risks for the offspring of obese women include an increased risk of metabolic syndrome and childhood obesity. #Anxiety/Depression - Remeron 45 mg daily - Wellbutrin 150 mg daily (stopped around 16 weeks-increased anxiety) - Starting Abilify (03/26) - Seeing therapist/Psychiatrist #COVID infection - Hx of COVID infection in - Current COVID infection - Runny nose, otherwise asymptomatic - Will continue to monitor # wellbeing - 36 week growth US:?2995 g, EFW 66th percentile. Abdominal circumference 79th percentile. - Cat I NST - [place]: irregular contractions
[2022-09-03 14:14] LABS: Alanine Aminotransferase* 19 U/L (4-35); Aspartate Amino Transferase* 35 U/L (12-35); Blood Urea Nitrogen* 11 mg/dL (5-24); Creatinine* 0.6 mg/dL (0.5-1.5); Est. Creatinine Clearance* 118.39; Estimated Glomerular Filt Rate 124 ml/min
--- NOTE | 2022-09-03 16:03 | PM.OBPNL ---
Subjective Time Seen by Provider: 12:30 Date Seen: 09/03/22 Narrative: Irina is coping well with labor pain/contractions, though she does say they are uncomfortable and she may want an epidural in the near future. She is currently being supported by her partner. After admission, pt was noted to be covid positive. Called to pt room by RN for concerns of elevated blood pressure. RN at bedside trying to place IV access and obtain labs. Protocol for severe range blood pressures started already by RNs. Objective Exam: Vital signs: afebrile. Blood pressures elevated. General Appearance:? Calm, cooperative. No acute distress. ? Psychiatric Exam: Alert and oriented, appropriate affect Abdomen: Gravid Ctx: ?Q 1-6 min apart. ?Mild FHTs: Baseline: 135 Variability: moderate. Accels: present. Decels: occ variable decel SVE: deferred at this time Membranes: Intact ? Vital Signs: Last Vital Signs Temp 98.1 F 09/03/22 12:10 Pulse 61 09/03/22 14:56 Resp 18 09/03/22 12:10 BP 134/61 09/03/22 14:56 Assessment Assessment: induction ongoing Station: -2 Heart Rate Baseline: 130 Monitor Accelerations: Present Monitor Decelerations: None Plan Plan: Assessment:?? 32 at 39.1 weeks gestation?? Patient is coping well with challenges of labor, but states she is getting uncomfortable Labor type: Induced, Early labor?? complicated by: GDM. Labor complicated by: -Blood pressures in the severe range? -Covid + ? Plan:?? Continue with routine intrapartum cares as ordered.?? Continue with cytotec IOL once blood pressures are under control. Reviewed blood pressure and recommendations for plan of care including: -IV placement followed by IVP medication to control blood pressures and magnesium sulfate per protocol. -Continuous monitoring -Will also obtain preeclampsia labs. -Dr. Gutierrez to assume care. Epidural when desired and labor more active per pt request Anticipate progress to NVD.
--- NOTE | 2022-09-03 19:19 | PM.OBPNL ---
Subjective Time Seen by Provider: 18:00 Date Seen: 09/03/22 Narrative: S: Víctor is comfortable w/o epidural but having minimal contractions. Verbal consent for cervical check and placement of cook catheter if cervix is amenable. O: Vital signs: Please see the patient's heart monitoring tracing for vital signs. EFM/IUPC: Baseline 130s bpm, moderate variability, + accelerations, - decelerations. Reactive. Category I. TOCO: Q10-15 minutes SVE: 1 cm/25%/-3/mid/soft. Cook cath placed at 1800. A: 32-year-old 1 para 0 at 39 weeks 1 days gestation undergoing induction. P: 1. Will d/c cytotec protocol. Cook cath for 12 hours. Will start pitocin per protocol in 3 hours. 2. Plan for labor analgesia: epidural Objective Vital Signs: Last Vital Signs Temp 98.5 F 09/03/22 16:06 Pulse 88 09/03/22 19:11 Resp 18 09/03/22 16:06 BP 141/74 H 09/03/22 19:11 Assessment Heart Rate Baseline: 130
[2022-09-03 19:36] LABS: Hematocrit 37.2 % (33.0-51.0); Hemoglobin* 12.3 gm/dL (12.0-16.0); Mean Corpuscular HGB Conc 33 gm/dL (32-36); Mean Corpuscular Hemoglobin 30 pg (26-34); Mean Corpuscular Volume 90 fL (80-100); Platelet Count* 283 K/uL (140-440); Red Blood Count 4.13 m/uL (4.00-5.20); White Blood Count* 9.53 K/uL (4.50-11.00)
[2022-09-03 19:42] LABS: Alanine Aminotransferase* 20 U/L (4-35); Aspartate Amino Transferase* 25 U/L (12-35); Blood Urea Nitrogen* 11 mg/dL (5-24); Creatinine* 0.8 mg/dL (0.5-1.5); Est. Creatinine Clearance* 88.79; Estimated Glomerular Filt Rate 102 ml/min
[2022-09-03 19:43] LABS: Slide Review Reflex No
[2022-09-03] MEDS: MIRTAZAPINE 45 MG PO (20:00)
[2022-09-03] MEDS: OXYTOCIN 30 unit/500 ML in NS 30 UNIT/500 ML BAG IVPB (21:06)
[2022-09-03] MEDS: hydrOXYzine pamoate 25 MG CAPSULE 100 MG PO (21:06)
[2022-09-03] MEDS: MORPHINE 10 MG/ML inj IM (21:07)
[2022-09-04] VITALS (64 sets, daily range): BP systolic 116–176; BP diastolic 58–92; PULSE 67–102; RESP 12–18; TEMP 36.4–37.1; O2SAT 96–99
[2022-09-04] MEDS: LACTATED RINGERS 1000 ML 1,000 ML 75 ML IV (00:19)
[2022-09-04 01:11] LABS: Hematocrit 34.9 % (33.0-51.0); Hemoglobin* 11.8 gm/dL (12.0-16.0); Mean Corpuscular HGB Conc 34 gm/dL (32-36); Mean Corpuscular Hemoglobin 30 pg (26-34); Mean Corpuscular Volume 88 fL (80-100); Platelet Count* 259 K/uL (140-440); Red Blood Count 3.95 m/uL (4.00-5.20); White Blood Count* 9.84 K/uL (4.50-11.00)
[2022-09-04 01:13] LABS: Slide Review Reflex No
[2022-09-04 01:36] LABS: Alanine Aminotransferase* 19 U/L (4-35); Aspartate Amino Transferase* 23 U/L (12-35); Blood Urea Nitrogen* 10 mg/dL (5-24); Creatinine* 0.7 mg/dL (0.5-1.5); Est. Creatinine Clearance* 101.48; Estimated Glomerular Filt Rate 119 ml/min
[2022-09-04 08:12] LABS: Hematocrit 37.6 % (33.0-51.0); Hemoglobin* 12.8 gm/dL (12.0-16.0); Mean Corpuscular HGB Conc 34 gm/dL (32-36); Mean Corpuscular Hemoglobin 30 pg (26-34); Mean Corpuscular Volume 88 fL (80-100); Platelet Count* 297 K/uL (140-440); Red Blood Count 4.26 m/uL (4.00-5.20); White Blood Count* 12.02 K/uL (4.50-11.00)
[2022-09-04 08:21] LABS: Slide Review Reflex No
[2022-09-04 08:24] LABS: Creatinine* 0.7 mg/dL (0.5-1.5); Est. Creatinine Clearance* 101.48; Estimated Glomerular Filt Rate 119 ml/min
[2022-09-04 08:25] LABS: Alanine Aminotransferase* 21 U/L (4-35); Aspartate Amino Transferase* 37 U/L (12-35); Blood Urea Nitrogen* 9 mg/dL (5-24)
[2022-09-04] MEDS: ROPIVACAINE 0.2% 100 ml 100 ML 12 MG EPIDURAL (14:14)
--- NOTE | 2022-09-04 14:50 | P.ANBPRC_ITS ---
[facility] Medical History (Updated 09/03/22 @ 16:02 by Vannesa Espinoza CNM) Exposure to severe acute respiratory syndrome coronavirus 2 (SARS-CoV-2) Surgical History (Updated 09/03/22 @ 15:12 by Vannesa Espinoza CNM) Status post surgical removal of nail matrix of toe Status post tonsillectomy and adenoidectomy [place] teeth extracted Family History (Updated 09/03/22 @ 15:19 by Vannesa Espinoza CNM) Father Myocardial infarction High blood pressure Stroke Maternal Grandmother Diabetes Maternal Grandfather Dementia Social History (Updated 04/11/22 @ 09:08 by Nelsy Cochran) Narrative: Depo-Provera contraceptive status Smoking Status: Never smoker Meds Home Medications and Allergies Home Medications Medication Instructions Recorded Confirmed Type pyridoxine (vitamin B6) 50 mg 50 mg PO DAILY 04/09/22 09/03/22 History tablet docusate sodium 100 mg capsule 100 mg PO BID 06/18/22 09/03/22 History (Dulcolax Stool Softener (docusate)) prenat.vits,hung,inc-ywqu-aaoee 1 tab PO QDAY 06/18/22 09/03/22 History famotidine 10 mg tablet 10 mg PO QDAY 07/24/22 09/03/22 History aspirin 81 mg capsule 81 mg PO DAILY 09/03/22 09/03/22 History Allergies Allergy/AdvReac Type Severity Reaction Status Date / Time codeine Allergy Nausea Verified 08/28/22 13:27 hydrocodone Allergy Verified 08/28/22 13:27 phenazopyridine Allergy Vomiting Verified 09/03/22 07:37 Results Labs Labs: Laboratory Results - last 24 hr 09/03/22 09/03/22 09/03/22 13:18 19:09 19:09 WBC 9.53 RBC 4.13 Hgb 12.3 Hct 37.2 MCV 90 MCH 30 MCHC 33 Plt Count 283 BUN 11 Creatinine 0.8 Estimated Creat Clear 88.79 Estimated GFR 102 AST 25 ALT 20 Blood Type O Positive Antibody Screen NEGATIVE 09/04/22 09/04/22 09/04/22 01:05 01:05 07:30 WBC 9.84 12.02 H RBC 3.95 L 4.26 Hgb 11.8 L 12.8 Hct 34.9 37.6 MCV 88 88 MCH 30 30 MCHC 34 34 Plt Count 259 297 BUN 10 Creatinine 0.7 Estimated Creat Clear 101.48 Estimated GFR 119 AST 23 ALT 19 Blood Type Antibody Screen 09/04/22 07:30 WBC RBC Hgb Hct MCV MCH MCHC Plt Count BUN 9 Creatinine 0.7 Estimated Creat Clear 101.48 Estimated GFR 119 AST 37 H ALT 21 Blood Type Antibody Screen Vital Signs Vital Signs: Last Vital Signs Temp 97.7 F 09/04/22 13:28 Pulse 88 09/04/22 14:46 Resp 18 09/04/22 13:28 BP 154/77 H 09/04/22 14:46 Pulse Ox 98 09/04/22 14:48 Weight: 129.274 kg Height: 162.56 cm Anesthesia Procedures Epidural Insertion Patient Location: OB Start Time: 14:00 Stop Time: 15:00 Start Date: 09/04/22 Stop Date: 09/04/22 Reason for Block: procedure for pain Patient Position: sitting Performed By: César Agee Preanesthetic Checklist: IV checked, risks and benefits discussed, surgical consent, monitors and equipment checked, pre-op evaluation, timeout performed and anesthesia consent Prep: chlorhexidine gluconate Monitoring: blood pressure monitoring, continuous pulse oximetry and heart rate Approach: midline Vertebral Space: lumbar (1-5) Epidural Technique: MARYAN saline Needle Type: Tuohy needle Injection Technique: continuous catheter Needle gauge: 17 Needle Length (cm): 10 cm Needle Insertion Depth (cm): 8 Catheter Gauge: 19 Catheter Type: multi-orifice Catheter at skin depth (cm): 13 Test Dose Result: negative and lidocaine 1.5% with epinephrine 1 to 200,000
[2022-09-04 15:29] LABS: Hematocrit 36.6 % (33.0-51.0); Hemoglobin* 12.2 gm/dL (12.0-16.0); Mean Corpuscular HGB Conc 33 gm/dL (32-36); Mean Corpuscular Hemoglobin 30 pg (26-34); Mean Corpuscular Volume 90 fL (80-100); Platelet Count* 286 K/uL (140-440); Red Blood Count 4.07 m/uL (4.00-5.20); White Blood Count* 10.61 K/uL (4.50-11.00)
[2022-09-04 15:58] LABS: Slide Review Reflex No
[2022-09-04] MEDS: INSULIN INF 100 UNIT/100 ML 100 UNIT/100 ML BAG IVPB (16:14)
[2022-09-04 16:15] LABS: Alanine Aminotransferase* 21 U/L (4-35); Aspartate Amino Transferase* 30 U/L (12-35); Blood Urea Nitrogen* 11 mg/dL (5-24); Creatinine* 0.8 mg/dL (0.5-1.5); Est. Creatinine Clearance* 88.79; Estimated Glomerular Filt Rate 102 ml/min
[2022-09-04] MEDS: 5 % DEXTROSE/0.9% SOD CHLORIDE 1,000 ML 125 ML IV (18:41)
--- NOTE | 2022-09-04 20:09 | P.OBPN_ITS ---
Subjective Time Seen by Provider: 20:10 Date Seen: 09/04/22 Narrative: Subjective: Patient is comfortable w/ epidural. Pitocin: 12 milliunits/minute. Vital signs: Per electronic medical record. EFM: Baseline 130s, (+) accelerations, (+) sporadic variable decelerations, moderate variability, reactive. Category 2. Reassuring IUPC: Contractions every 3-5 minutes. [place] units 30-80 since IUP placed at 4pm SVE: 4 cm/60%/-2. Unchanged from 10:00 a.m. when I ruptured her membranes. Assessment: 32-year-old 1 para 0 at 39 weeks 2 days gestation: Arrest of dilation/unsuccessful induction of labor. Plan: 1. Recommended primary low-transverse section for arrest of dilation/unsuccessful induction of labor. 2. Has an epidural for labor analgesia. 3. Consent form for primary low-transverse section reviewed and signed. Objective Vital Signs: Last Vital Signs Temp 98.2 F 09/04/22 18:29 Pulse 81 09/04/22 19:58 Resp 18 09/04/22 18:29 BP 127/59 L 09/04/22 19:58 Pulse Ox 99 09/04/22 15:03 Assessment Station: -2 Heart Rate Baseline: 130 Monitor Accelerations: Present Monitor Decelerations: None
--- NOTE | 2022-09-04 20:20 | P.PCN_ITS ---
Procedure Note Time Seen by Provider: 20: Date Seen: 09/04/22 Date of procedure: 09/04/22 Will [facility] bill your pro fee for this procedure?: Yes Procedure: Preoperative diagnosis: 32-year-old 1 para 0 at 39 and 2/7 weeks * Arrest of dilation 4 cm/unsuccessful induction of labor * BMI 45.0-49.9 * Diet-controlled gestational diabetes * Severe preeclampsia on magnesium sulfate for seizure prophylaxis: Laboratory tests normal for slightly elevated AST this mornin. Postoperative diagnosis: Same Procedure: Primary low-transverse section Anesthesia: Epidural Surgeon: Monie Stuart MD Carpet Mechanic: Not applicable Quantitative blood loss: 920 mL IV Fluid: 1000 mL UOP: 25 mL Specimen: Placenta Drain(s): 1. Marks to gravity. 2. Bakri Balloon to gravity. Findings: A live male was delivered from the LOT position at 9:40 p.m.. Apgars were 8 at 1 min and 9 at 5 min respectively. Infant weight: Pending at the time of this note. Nuchal cord(s): No. The placenta was delivered s pontaneously and complete at 9:42 p.m.. Amniotic fluid: clear. Normal uterus, fallopian tubes and ovaries were noted. Procedure: Irina was taken to the OR where epidural anesthetic was found be adequate. A Marks catheter was placed. The patient was then placed in the dorsal supine position with a leftward tilt. She was then prepped and draped in a normal sterile manner. A Pfannenstiel skin incision was made and carried through sharply to the underlying layer of fascia. Fascia was incised in the midline and this incision carried laterally with Torres scissors. The superior aspect of fascial incision was grasped with Anahi clamps, tented up, and the rectus muscles dissected off with a combination of blunt and sharp dissection. The inferior aspect of the fascial incision was grasped with Anahi clamps, tented up and again the rectus muscles dissected off with a combination of blunt and sharp dissection. The rectus muscles were in the midline. The peritoneum was entered bluntly. This opening was extended bluntly. An Gagandeep-O self-retaining retractor was placed. A bladder flap was not created. Uterus was incised in a low transverse manner in the midline. This incision carried laterally with blunt pressure on the inferior and superior aspects of the uterine incision. The amniotic sac was ruptured. The 's head and body was delivered atraumatically. The was shown to the patient and her support person and then handed to waiting pediatric and nursing staff. The placenta was delivered spontaneously. The uterus was cleared of clots and debris. There is noted to be significant uterine atony after the placenta was delivered. This was treated with 40 units Pitocin in 1 L IV fluid wide open, 800 mg Cytotec p.r., 1 g IV TXA and placement of Bakri balloon with 150 mL saline. The uterine incision was re-approximated with the uterus in vivo. The 1st layer using 0-Vicryl in a running, locked manner. The 2nd layer using 0- Monocryl in a running, vertical, imbricating layer. Additional sutures needed for hemostasis: Yes: For figure of 8 sutures using 2-0 chromic. Excellent hemostasis was verified. Pam was applied to the uterine incision. The Gagandeep retractor was removed. The peritoneum was repaired using 3-0 Vicryl in a running manner. The rectus muscles were not re-approximated. The rectus muscles were then closely inspected to verify hemostasis. Hemostasis was obtained with bipolar cautery. The fascia was then re-approximated using 0-Maxon loop in a running manner. The subcutaneous tissue was then irrigated with saline and hemostasis obtained with bipolar cautery. The subcutaneous tissue was re-approximated using 3-0 plain gut interrupted sutures: 6 sutures of 3-0 plain gut were used. The skin was repaired using 4-0 Monocryl in a running subcuticular manner. Steri-Strips and a silver-containing methaplex dressing was applied. The patient tolerated this procedure well. Sponge, lap and instrument counts were correct x2 active to the procedure. Patient was taken to the recovery area in stable condition. The patient received 3g of IV Ancef prior to skin incision. 1gm IV TXA given after cord clamp. After delivery of the placenta the patient received: 1 L lactated Ringer's with 40 units Pitocin IV, 800 mg Cytotec p.r. Bakri balloon placed at approximately 9:50 p.m. with 150 mL saline. Surgeon: Monie Stuart MD
[2022-09-04] MEDS: LACTATED RINGERS 1000 ML 1,000 ML 100 ML IV (21:00)
[2022-09-04] MEDS: CEFAZOLIN 3 GM in 0.9 % SODIUM CHLORIDE Mini-bag 100 ML IVPB (21:05)
[2022-09-04] MEDS: miSOPROStoL 800 MCG/4 TABLET PR (21:44)
--- NOTE | 2022-09-04 23:19 | W.PM.NB ---
Nerve Block Nerve Block Time Seen by Provider: 23:00 Date Seen: 09/04/22 Type of block requested by surgeon for post-operative analgesia: TAP Side: bilateral Time out performed: Yes Verification of patient name: Yes Verification of date of : Yes Site marking: site marked Name of person performing procedure: Tito Shanitay Continuous monitoring Was continuous monitoring of O2 sat, B/P, environmental monitoring technician, recorded every 15 minutes?: Yes Procedure Checklist: sterile prep, needles and gloves Ultrasound guided. Images saved: Yes Medications given in 5ml increments after negative aspiration: Marcaine %: 0.25 mL: 30 and Exparel mL: 10 Patient tolerated procedure well: Yes Block Charges Block Charge (with Pro Fee): TAP Bilateral Use of Ultrasound Machine for Block: Yes- US Guidance/pain block
--- NOTE | 2022-09-04 23:20 | W.ANESCHARGE ---
Anesthesia Charges Start Date/Time Anesthesia Start Date: 09/04/22 Anesthesia Start Time: 21:00 Stop Date/Time Anesthesia Stop Date: 09/04/22 Anesthesia Stop Time: 23:10 Summary Emergency: Yes
[2022-09-05] VITALS (30 sets, daily range): BP systolic 117–151; BP diastolic 46–92; PULSE 86–116; RESP 15–20; TEMP 36.7–38.5; O2SAT 94–98
[2022-09-05] MEDS: MIRTAZAPINE 45 MG PO (00:17)
[2022-09-05] MEDS: ACETAMINOPHEN 500 MG TABLET 1000 MG PO ×3 (01:16→19:29)
[2022-09-05] MEDS: LACTATED RINGERS 1000 ML 1,000 ML 75 ML IV (02:57)
[2022-09-05] MEDS: ONDANSETRON 2 MG/ML inj 4 MG IVP (03:30)
[2022-09-05] MEDS: SODIUM CHLORIDE 0.9 % (FLUSH) 10 ML SYRINGE IVF (03:34)
[2022-09-05] MEDS: KETOROLAC 30 MG/ML inj IVP ×4 (03:40→22:02)
[2022-09-05 07:16] LABS: Hematocrit 33.2 % (33.0-51.0); Hemoglobin* 11.3 gm/dL (12.0-16.0); Mean Corpuscular HGB Conc 34 gm/dL (32-36); Mean Corpuscular Hemoglobin 30 pg (26-34); Mean Corpuscular Volume 89 fL (80-100); Platelet Count* 241 K/uL (140-440); Red Blood Count 3.73 m/uL (4.00-5.20); White Blood Count* 13.01 K/uL (4.50-11.00)
[2022-09-05 07:32] LABS: Slide Review Reflex No
[2022-09-05 07:35] LABS: Alanine Aminotransferase* 18 U/L (4-35); Aspartate Amino Transferase* 28 U/L (12-35); Creatinine* 0.8 mg/dL (0.5-1.5); Est. Creatinine Clearance* 88.79; Estimated Glomerular Filt Rate 102 ml/min
[2022-09-05 07:36] LABS: Blood Urea Nitrogen* 12 mg/dL (5-24)
--- NOTE | 2022-09-05 09:03 | PM.OBPNCS1 ---
OB - PN: A/P Assessment and Plan (1) : Status: Acute (2) GDM (gestational diabetes mellitus): Status: Inactive (3) Encounter for induction of labor: Status: Acute (4) Anxiety: Status: Resolved Plan Postoperative Review: - Admitted for: IOL at 39w1d due to A1GM - Surgical procedure: Primary low-transverse section - Skin incision: Pfannenstiel - Closure: sutures - Estimated blood loss: 920 mL - Intraoperative Complications: uterine atony requiring 1 g of IV TXA 40 u of pitocin IV, 800 mg of cytotect NC, and bakri balloon. - Bakri balloon to be removed at 10 AM - Urine output: 0.88 mL/kg/hr - Preop H/H: 12.2/ 36.6 - Postop H/H: 11.3/ 33.2 PreEwSF - Dx intrapartum based on severe ranging BP requiring 20 mg of labetalol - BP: High 140s/70s-90s. Discussed with patient that she might need PO antihypertensive medications if her BP trends into the 150s/90s persistently. She thinks it's due to her nausea/vomitting but is amenable to starting PO med if needed. She states that she was on BP medications a few years ago. She can't remember which one it was. - Currently on mag sulfate for seizure ppx: 4 g loading, then 2 g maintainence. Will continue to 24 hr (9:20 PM). - Baseline PreE labs: hgb 13.1, plt 297, ALT 19, AST 35, Cr 0.6 - Coag with INR 0.91 and fibrinogen 646 - Serial labs overnight was only abnormal for AST of 37. It has normalized to 28 . The rest of PreE labs are wnl - Strict I/Os - Will continue to monitor BP and symptoms A1GDM - Failed early 1 hr, normal 1 hr, and 3 hr screening - 2 hr GTT at 6 weeks pp Anxiety/Depression - Remeron 45 mg daily - Wellbutrin 150 mg daily (stopped around 16 weeks-increased anxiety) - Starting Abilify (03/26) - Seeing therapist/Psychiatrist COVID infection - Hx of COVID infection in - Current COVID infection - Runny nose, otherwise asymptomatic - O2 sat and RR appropriate overnight - Will continue to monitor Obesity - Pre-preganncy BMI 36.7 - She had a 75 lb weight gain during (210 to 285lb) - Was seeing a tumbler machine operator helper - PPx Lovenox while inpatient due to obesity and delivery Postoperative care: - Diet: Advance as tolerated - Fluid: Encourage oral intake - Activity: Encourage ambulation and incentive spirometry - Pain: Tylenol, Ibuprofen, and Oxycodone - DVT prophylaxis: SCDs when not ambulating. PPx lovenox while inpatient Discharge Planning - Contraception: undecided - Follow up in 5-7 days for incisionl/ BP check in clinic - Follow Up: Need 2hr gtt at 6 weeks Baby's Status - Fetus: 8, 9 g, male - Location: bedside Dispo: Patient is POD#1. Not yet 24 hours pp. Need the following milestones: removal of bakri balloon, d/c mag sulfate at 24 hr pp, ambulating without assistance, urination without fernandez, passing flatus, and adequate nausea control. Anticipate discharge POD#2/3. Plan day: 1 OB - PN: Subj Subjective Time Seen by Provider: 08:30 Date Seen: 09/05/22 Narrative: Overnight patient had complaints of fatigue, nausea, and vomitting. Her pain is well controlled on oral pain medications. She is not yet tolerating a regular diet to due persistent nausea. She has not passed flatus. She is not yet ambulating without difficulty due to fernandez catheter and bakri balloon. Lochia is scant. She is urinating with fernandez. Adequate urine output, 0.88 (mL/kg/hr). Patient denies chest pain, SOB, n/v, headache, RUQ pain, vision changes, dizziness. OB - PN: Obj Exam Physical Exam: Vital signs: Temp Pulse Resp BP Pulse Ox O2 Del Method 98.1 F 90 20 149/91 H 94 09/05/22 04:49 09/05/22 04:49 09/05/22 05:31 09/05/22 04:49 09/05/22 04:49 09/05/22 04:49 Narrative: Physical exam: General: No acute distress. In bed sleeping Psych: Alert and oriented x3, full affect HEENT: Normocephalic, atraumatic Heart: Regular rate and rhythm, no murmur rub or gallop Lungs: Clear to auscultation bilaterally Abdomen: Normoactive bowel sounds, soft, no tenderness, rebound, or guarding, no masses Incision: Silver dressing clean and dry without surrounding erythema or warmth Lower extremities: 2+ edema bilateral. SCDs in place Pelvic exam: Scant lochia OB - PN: Obj Data Labs Labs: Laboratory Results - last 24 hr 09/03/22 09/04/22 09/04/22 13:18 15:16 15:16 WBC 10.61 RBC 4.07 Hgb 12.2 Hct 36.6 MCV 90 MCH 30 MCHC 33 Plt Count 286 BUN 11 Creatinine 0.8 Estimated Creat Clear 88.79 Estimated GFR 102 AST 30 ALT 21 Crossmatch ([facility]) See Detail 09/05/22 09/05/22 07:10 07:10 WBC 13.01 H RBC 3.73 L Hgb 11.3 L Hct 33.2 MCV 89 MCH 30 MCHC 34 Plt Count 241 BUN 12 Creatinine 0.8 Estimated Creat Clear 88.79 Estimated GFR 102 AST 28 ALT 18 Crossmatch ([facility])
[2022-09-05] MEDS: SCOPOLAMINE 1 MG/3 DAY PATCH 1 PATCH TRANSDERMA (09:50)
--- NOTE | 2022-09-05 20:36 | CRLHL7_ITS ---
For Patients: As a result of the Cures Act, medical imaging exams and procedure reports are released immediately into your electronic medical record. You may view this report before your referring provider. If you have questions, please contact your health care provider. HISTORY: COVID-19 positive. Fever. COMPARISON: 08/01/2021 FINDINGS: A portable erect AP lordotic view of the chest was obtained at 21 0 3 hours. The lungs remain clear. No focal or diffuse infiltrates are present. The heart remains normal in size. The mediastinum is normal in appearance. The osseous structures are normal in appearance for the patient`s age. IMPRESSION: Normal portable chest single view. Dictated by Fernando Campo MD @ 09/05/2022 9:40:12 PM (Electronically Signed)
[2022-09-05 20:58] LABS: Hematocrit 30.4 % (33.0-51.0); Hemoglobin* 10.2 gm/dL (12.0-16.0); Immature Granulocytes Abs Auto 0.12 K/uL (0.00-0.30); Immature Granulocytes Pct Auto 1.3 %; Lactate* 2.6 mmol/L (0.5-1.9); Lymphocytes Percent Auto 2.5 % (20-44); Mean Corpuscular HGB Conc 34 gm/dL (32-36); Mean Corpuscular Hemoglobin 30 pg (26-34); Mean Corpuscular Volume 91 fL (80-100); Monocytes Percent Auto 2.1 % (0.0-11.0); Neutrophils Percent Auto 94.1 % (42.0-72.0); Platelet Count* 192 K/uL (140-440); RDW Coefficient of Variation % 14.5 % (11.5-15.5); Red Blood Count 3.36 m/uL (4.00-5.20); White Blood Count* 9.36 K/uL (4.50-11.00)
[2022-09-05 21:05] LABS: Slide Review Reflex No
[2022-09-05 21:13] LABS: Chloride* 100 mmol/L (96-114)
[2022-09-05 21:14] LABS: Potassium* 4.2 mmol/L (3.6-5.1); Sodium* 125 mmol/L (135-149)
[2022-09-05 21:16] LABS: Creatinine* 0.9 mg/dL (0.5-1.5); Est. Creatinine Clearance* 78.93; Estimated Glomerular Filt Rate 88 ml/min
[2022-09-05 21:17] LABS: Blood Urea Nitrogen* 13 mg/dL (5-24); Carbon Dioxide* 21 mmol/L (20-32); Glucose* 97 mg/dL (60-115)
[2022-09-05] MEDS: CLINDAMYCIN 900 MG/50 ML-D5W IVPB (21:21)
[2022-09-05 22:16] LABS: Appearance Urine Clear (Clear); Bilirubin Urine Negative (Negative); Blood Urine 3+ (Negative); Color Urine Yellow (Yellow); Glucose Urine Negative (Negative); Ketones Urine Negative (Negative); Leukocyte Esterase Urine Negative (Negative); Nitrite Urine Negative (Negative); Protein Urine Trace (Negative); Specific Gravity Urine >= 1.030 (1.000-1.030); Urobilinogen Urine 0.2 (0.2-1.0); pH Urine 5.5 (5.0-8.5)
[2022-09-05 22:32] LABS: RBC Urine >100 (0-2); Squamous Epithelial Cell Urine Few (None-Few); WBC Urine 0-2 (0-5)
--- NOTE | 2022-09-05 23:03 | PM.OBPNCS1 ---
OB - PN: A/P Assessment and Plan (1) : Status: Acute (2) GDM (gestational diabetes mellitus): Status: Inactive (3) Encounter for induction of labor: Status: Acute (4) Anxiety: Status: Resolved (5) endometritis: Status: Acute Plan - Patient with persistent fever, diaphoresis, tachycardia, and fundal tenderness - CBC, BMP, lactate, UA/UCx, CXR ordered - 1 LR bolus now - Clindamycin 900 mg IV Q8H and Gentamicin 5mg/kg IV Q24H until 48 hours afebrile. If no clinical improvement after 24 hours, will add ampicillin 2 g IV Q6H to cover resistant organisms. - Will give IV Ig monoclonal antibody for COVID infection as patient is high risk for developing complications OB - PN: Subj Subjective Time Seen by Provider: 20:00 Date Seen: 09/06/22 Narrative: Patient started complaining of feeling hot, chills, palpitations, and shortness of breath this afternoon. Upon arrival to evaluate patient, she diaphoretic and fatigued appearing in bed. She developed a fever of 101.3F at 1934. Patient has covid and she states that shortness of breath has worsen but she is unsure of it's due to pain that she hasn't been able to take deep breaths. I discussed with patient that she most likely has endometritis given her risk factors of delivery, BMI, and foreign body placement in her uterus (bakri balloon). Additionally, patient was especially tender at uterine fundus, more pronounced than section incision site. However, we will get CXR as well due to her COVID+ status and she is symptomatic (cough and runny nose). Her O2 sat and respiratory rate has been reassuring. OB - PN: Obj Exam Physical Exam: Vital signs: Temp Pulse Resp BP Pulse Ox O2 Del Method 99.2 F 99 16 122/77 97 09/05/22 22:13 09/05/22 22:13 09/05/22 22:13 09/05/22 22:13 09/05/22 22:13 09/05/22 22:13 Narrative: Physical exam: General: No acute distress. Fatigue appearing Psych: Alert and oriented x3, full affect HEENT: Normocephalic, atraumatic Heart: Tachycardia, Regular rhythm, no murmur rub or gallop Lungs: Clear to auscultation bilaterally. Good inspiratory effort Abdomen: Very tender at uterine fundus with guarding. Appropriately tender at c/s incision site. No rebound, no masses, no hepatosplenomegaly Skin: No lesions or rashes. Diaphoretic. Patient feels very warm Breasts: no nodules or masses, no nipple discharge, no axillary adenopathy. No concern for mastitis. Lower extremities: 2+ edema bilateral, stable. No tenderness or clots felt upon palpation of calf bilaterally. Negative Goldie sign bilaterally. Pelvic exam: scant lochia OB - PN: Obj Data Labs Labs: Laboratory Results - last 24 hr 09/05/22 09/05/22 09/05/22 07:10 07:10 20:51 WBC 13.01 H 9.36 RBC 3.73 L 3.36 L Hgb 11.3 L 10.2 L Hct 33.2 30.4 L MCV 89 91 MCH 30 30 MCHC 34 34 RDW Coeff of [place] 14.5 Plt Count 241 192 Neut % (Auto) 94.1 H Lymph % (Auto) 2.5 L [place] % (Auto) 2.1 Eos % (Auto) 0.0 Baso % (Auto) 0.0 Neut # (Auto) 8.80 H Lymph # (Auto) 0.20 L [place] # (Auto) 0.20 Eos # (Auto) 0.00 Baso # (Auto) 0.00 Abs Immat Gran (auto) 0.12 Imm/Tot Granulo (auto) 1.3 Sodium Potassium Chloride Carbon Dioxide BUN 12 Creatinine 0.8 Estimated Creat Clear 88.79 Estimated GFR 102 Glucose Lactate Calcium AST 28 ALT 18 Urine Color Urine Appearance Urine pH Ur Specific [place] Urine Protein Urine Glucose (UA) Urine Ketones Urine Blood Urine Nitrite Urine Bilirubin Urine Urobilinogen Ur Leukocyte Esterase Urine RBC Urine WBC Ur Squamous Epith Cells Urine Bacteria 09/05/22 09/05/22 09/05/22 20:51 20:51 20:55 WBC RBC Hgb Hct MCV MCH MCHC RDW Coeff of Shaniqua Plt Count Neut % (Auto) Lymph % (Auto) [place] % (Auto) Eos % (Auto) Baso % (Auto) Neut # (Auto) Lymph # (Auto) [place] # (Auto) Eos # (Auto) Baso # (Auto) Abs Immat Gran (auto) Imm/Tot Granulo (auto) Sodium 125 L Potassium 4.2 Chloride 100 Carbon Dioxide 21 BUN 13 Creatinine 0.9 Estimated Creat Clear 78.93 Estimated GFR 88 Glucose 97 Lactate 2.6 H Calcium 6.0 L AST ALT Urine Color Yellow Urine Appearance Clear Urine pH 5.5 Ur Specific [place] >= 1.030 Urine Protein Trace A Urine Glucose (UA) Negative Urine Ketones Negative Urine Blood 3+ A Urine Nitrite Negative Urine Bilirubin Negative Urine Urobilinogen 0.2 Ur Leukocyte Esterase Negative Urine RBC >100 A Urine WBC 0-2 Ur Squamous Epith Cells Few Urine Bacteria None
[2022-09-06] VITALS (12 sets, daily range): BP systolic 117–149; BP diastolic 77–96; PULSE 59–98; RESP 16–24; TEMP 36.6–37.7; O2SAT 93–100
[2022-09-06 00:11] LABS: Lactate* 0.8 mmol/L (0.5-1.9)
[2022-09-06] MEDS: ACETAMINOPHEN 500 MG TABLET 1000 MG PO ×3 (02:10→17:47)
[2022-09-06] MEDS: LACTATED RINGERS 1000 ML 1,000 ML 125 ML IV (03:41)
[2022-09-06] MEDS: KETOROLAC 30 MG/ML inj IVP (03:54)
[2022-09-06] MEDS: CLINDAMYCIN 900 MG/50 ML-D5W IVPB ×3 (05:33→21:19)
--- NOTE | 2022-09-06 05:33 | P.OBPN_ITS ---
OB - PN: A/P Assessment and Plan (1) : Status: Acute (2) GDM (gestational diabetes mellitus): Status: Inactive (3) Encounter for induction of labor: Status: Acute (4) Anxiety: Status: Resolved (5) endometritis: Status: Acute Plan Comments: - Will treat her COVID with remdesivir instead as she is endorsing worsening symptoms with SOB and congestion: Remesivir 200 mg D1, then 100 mg D2-5 or until discharge (whichever is first). - Patient does not need steroid as she is currently not requiring oxygen. If she starts needed oxygen supplementation will order dexamethasone 6 mg QD - Will continue current antibiotics for endometritis. Patient had good response. OB - PN: Subj Subjective Time Seen by Provider: 02:00 Date Seen: 09/06/22 Interval history: Patient had an episode of what appears to be a panic attack. She became really flush, starting complaining of shortness of breath, nasal congestion, and palpitations. At that time, her temp was 103 and HR of 110. RR and O2 sat were within normal limits. Patient had missed her anxiety medication due to everything that was going on with herself and taking care of a . She worries about her covid symptoms getting worse and she states she can feel herself panicking when she thinks she can't breath. OB - PN: Obj Exam Physical Exam: Vital signs: Temp Pulse Resp BP Pulse Ox O2 Del Method 98.7 F 84 24 129/79 97 09/06/22 04:35 09/06/22 04:35 09/06/22 04:35 09/06/22 04:35 09/06/22 04:35 09/06/22 04:35 Narrative: Physical exam: Gen eral: Anxious appe aring Psych:? Risa rt and oriented x3 , full affect HEEN T:? Normocephalic, atraumatic Heart: ? Tachycardia, Reg ular rhythm, no mu rmur rub or gallop Lungs:? Clear to auscultation bilat erally. Good inspi ratory effort Abdo men: Very tender a t uterine fundus w ith guarding still . Appropriately te nder at c/s incisi on site. No reboun d, no masses, no h epatosplenomegaly Skin:? No lesions or rashes. Pateint is less diaphoret ic than previous e xam. Patient still feels very warm. Breasts:? no nodu les or masses, no nipple discharge, no axillary adenop athy. No concern f or mastitis. Lower extremities:? 2+ edema bilateral, s table. No tenderne ss or clots felt u denise palpation of c neri bilaterally. N egative Goldie sign bilaterally. Pelv ic exam:? scant lo margot OB - PN: Obj Data Labs Labs: Laboratory Results - last 24 hr 09/05/22 09/05/22 09/05/22 07:10 07:10 20:51 WBC 13.01 H 9.36 RBC 3.73 L 3.36 L Hgb 11.3 L 10.2 L Hct 33.2 30.4 L MCV 89 91 MCH 30 30 MCHC 34 34 RDW Coeff of Shaniqua 14.5 Plt Count 241 192 Neut % (Auto) 94.1 H Lymph % (Auto) 2.5 L [place] % (Auto) 2.1 Eos % (Auto) 0.0 Baso % (Auto) 0.0 Neut # (Auto) 8.80 H Lymph # (Auto) 0.20 L [place] # (Auto) 0.20 Eos # (Auto) 0.00 Baso # (Auto) 0.00 Abs Immat Gran (auto) 0.12 Imm/Tot Granulo (auto) 1.3 Sodium Potassium Chloride Carbon Dioxide BUN 12 Creatinine 0.8 Estimated Creat Clear 88.79 Estimated GFR 102 Glucose Lactate Calcium AST 28 ALT 18 Urine Color Urine Appearance Urine pH Ur Specific [place] Urine Protein Urine Glucose (UA) Urine Ketones Urine Blood Urine Nitrite Urine Bilirubin Urine Urobilinogen Ur Leukocyte Esterase Urine RBC Urine WBC Ur Squamous Epith Cells Urine Bacteria 09/05/22 09/05/22 09/05/22 20:51 20:51 20:55 WBC RBC Hgb Hct MCV MCH MCHC RDW Coeff of Shaniqua Plt Count Neut % (Auto) Lymph % (Auto) [place] % (Auto) Eos % (Auto) Baso % (Auto) Neut # (Auto) Lymph # (Auto) [place] # (Auto) Eos # (Auto) Baso # (Auto) Abs Immat Gran (auto) Imm/Tot Granulo (auto) Sodium 125 L Potassium 4.2 Chloride 100 Carbon Dioxide 21 BUN 13 Creatinine 0.9 Estimated Creat Clear 78.93 Estimated GFR 88 Glucose 97 Lactate 2.6 H Calcium 6.0 L AST ALT Urine Color Yellow Urine Appearance Clear Urine pH 5.5 Ur Specific [place] >= 1.030 Urine Protein Trace A Urine Glucose (UA) Negative Urine Ketones Negative Urine Blood 3+ A Urine Nitrite Negative Urine Bilirubin Negative Urine Urobilinogen 0.2 Ur Leukocyte Esterase Negative Urine RBC >100 A Urine WBC 0-2 Ur Squamous Epith Cells Few Urine Bacteria None 09/06/22 00:00 WBC RBC Hgb Hct MCV MCH MCHC RDW Coeff of Shaniqua Plt Count Neut % (Auto) Lymph % (Auto) [place] % (Auto) Eos % (Auto) Baso % (Auto) Neut # (Auto) Lymph # (Auto) [place] # (Auto) Eos # (Auto) Baso # (Auto) Abs Immat Gran (auto) Imm/Tot Granulo (auto) Sodium Potassium Chloride Carbon Dioxide BUN Creatinine Estimated Creat Clear Estimated GFR Glucose Lactate 0.8 Calcium AST ALT Urine Color Urine Appearance Urine pH Ur Specific [place] Urine Protein Urine Glucose (UA) Urine Ketones Urine Blood Urine Nitrite Urine Bilirubin Urine Urobilinogen Ur Leukocyte Esterase Urine RBC Urine WBC Ur Squamous Epith Cells Urine Bacteria
[2022-09-06] MEDS: MULTIVITAMIN/MINERALS 1 TABLET 1 TAB PO (10:00)
[2022-09-06] MEDS: FERROUS SULFATE 325 MG TABLET PO (10:01)
[2022-09-06] MEDS: DOCUSATE SODIUM 100 MG CAPSULE PO ×2 (10:01→21:19)
--- NOTE | 2022-09-06 10:51 | P.OBPN_ITS ---
OB - PN: A/P Assessment and Plan (1) endometritis: Status: Acute Assessment and Plan: On gentamicin and clindamycin. Normal temperature since 8:00 p.m. on 09/05/2022. Normal WBC at last check. Repeat now. I will continue these antibiotics for at least 36 hours. Consider discharge tomorrow afternoon if she remains afebrile. (2) Severe pre-eclampsia affecting puerperium: Status: Acute Assessment and Plan: Continuing mild elevation of blood pressures. Begin labetalol 100 mg b.i.d.. (3) Anxiety and depression: Status: Acute Assessment and Plan: Panic attack last night. Anxiety is improved. Continue current management. (4) BMI 45.0-49.9, adult: Status: Acute Assessment and Plan: She is to receive Lovenox Q 24 hours. I will likely continue this for 2 weeks given her multiple risk factors for venous thromboembolism. (5) Status post primary low transverse section: Problem details: For failed IOL. Abel Garcia. Apgars: 8/9. Status: Acute Assessment and Plan: Appropriate course. She will return to clinic on postoperative day 7 for incision check/removal of silver dressing. (6) COVID-19 virus infection: Status: Acute Assessment and Plan: Normal chest x-ray. Symptomatic with shortness of breath last night. Currently receiving remdesivir. We will continue this while maintained inpatient. (7) Anemia associated with acute blood loss: Problem details: Uterine atony during , Bakri balloon placed. EBL 920 cc. Status: Acute Assessment and Plan: Begin ferrous sulfate 325 mg daily. Plan Plan: routine postop care OB - PN: Subj Subjective Date Seen: 09/06/22 Interval history: Irina is a 32 yo G1 now P1 woman s/p primary low-transverse section after failed induction of labor on 09/04/2022 in the setting of severe preeclampsia. OB Problem List: 1. Severe preeclampsia diagnosed intrapartum. Status post magnesium sulfate infusion for 24 hours. 2. Uterine atony during , EBL 920 mL. Bakri balloon placed for 12 hours. Now with anemia of acute blood loss. 3. endometritis. Initial temperature elevation of 101.3 at 7:34 p.m. on 09/05/2022. Lactate initially elevated, normalized after repeat. Maintained on gentamicin and clindamycin. 4. Symptomatic COVID infection. Short of breath PM of 09/05/2022. Treated with monoclonal antibodies and remdesivir. Normal oxygen saturations. 5. Anemia of acute blood loss. Ferrous sulfate started. 6. Pre- BMI 36.7. ?? ? Recent weight loss/dieting 7. Anxiety/Depression ?? ? Remeron 45 mg daily ?? ? Wellbutrin 150 mg daily (stopped around 16 weeks-increased anxiety) ?? ? Starting Abilify (03/26) ?? ? Seeing therapist/Psychiatrist 8. Gestational Diabetes A1 Narrative: Irina is feeling more calm today. No further panic attacks. She is b reathing better. Still working on baby's blood sugars. She is trying but is needing to supplement with formula. She is going to try pumping today. She has no other complaints. OB - PN: Obj Exam Physical Exam: Vital signs: Temp Pulse Resp BP Pulse Ox O2 Del Method 98.8 F 92 20 139/84 97 09/06/22 10:33 09/06/22 10:33 09/06/22 10:33 09/06/22 10:33 09/06/22 10:33 09/06/22 10:33 Afebrile since 10 PM on 09/05/2022 BPs generally 140s / 90s Narrative: General: Pleasant, no acute distress Heart: Regular rate and rhythm, no murmur or gallop Lungs: Clear to auscultation bilaterally Abdomen: Soft, nontender, fundus well below umbilicus, bruising noted in large swath over dressing Dressing: silver dressing dry and intact Lower extremities: 3+ edema bilaterally, no erythema OB - PN: Obj Data Labs Labs: Laboratory Results - last 24 hr 09/05/22 09/05/22 09/05/22 20:51 20:51 20:51 WBC 9.36 RBC 3.36 L Hgb 10.2 L Hct 30.4 L MCV 91 MCH 30 MCHC 34 RDW Coeff of Shaniqua 14.5 Plt Count 192 Neut % (Auto) 94.1 H Lymph % (Auto) 2.5 L [place] % (Auto) 2.1 Eos % (Auto) 0.0 Baso % (Auto) 0.0 Neut # (Auto) 8.80 H Lymph # (Auto) 0.20 L [place] # (Auto) 0.20 Eos # (Auto) 0.00 Baso # (Auto) 0.00 Abs Immat Gran (auto) 0.12 Imm/Tot Granulo (auto) 1.3 Sodium 125 L Potassium 4.2 Chloride 100 Carbon Dioxide 21 BUN 13 Creatinine 0.9 Estimated Creat Clear 78.93 Estimated GFR 88 Glucose 97 Lactate 2.6 H Calcium 6.0 L Urine Color Urine Appearance Urine pH Ur Specific [place] Urine Protein Urine Glucose (UA) Urine Ketones Urine Blood Urine Nitrite Urine Bilirubin Urine Urobilinogen Ur Leukocyte Esterase Urine RBC Urine WBC Ur Squamous Epith Cells Urine Bacteria 09/05/22 09/06/22 20:55 00:00 WBC RBC Hgb Hct MCV MCH MCHC RDW Coeff of Shaniqua Plt Count Neut % (Auto) Lymph % (Auto) [place] % (Auto) Eos % (Auto) Baso % (Auto) Neut # (Auto) Lymph # (Auto) [place] # (Auto) Eos # (Auto) Baso # (Auto) Abs Immat Gran (auto) Imm/Tot Granulo (auto) Sodium Potassium Chloride Carbon Dioxide BUN Creatinine Estimated Creat Clear Estimated GFR Glucose Lactate 0.8 Calcium Urine Color Yellow Urine Appearance Clear Urine pH 5.5 Ur Specific [place] >= 1.030 Urine Protein Trace A Urine Glucose (UA) Negative Urine Ketones Negative Urine Blood 3+ A Urine Nitrite Negative Urine Bilirubin Negative Urine Urobilinogen 0.2 Ur Leukocyte Esterase Negative Urine RBC >100 A Urine WBC 0-2 Ur Squamous Epith Cells Few Urine Bacteria None
[2022-09-06 11:19] LABS: Basophils Absolute Auto 0.02 K/uL (0.00-0.30); Basophils Percent Auto 0.3 % (0.0-3.0); Hemoglobin* 10.3 gm/dL (12.0-16.0); Immature Granulocytes Abs Auto 0.06 K/uL (0.00-0.30); Lymphocytes Percent Auto 7.2 % (20-44); Mean Corpuscular HGB Conc 33 gm/dL (32-36); Mean Corpuscular Hemoglobin 30 pg (26-34); Mean Corpuscular Volume 90 fL (80-100); Monocytes Percent Auto 3.7 % (0.0-11.0); Neutrophils Percent Auto 87.8 % (42.0-72.0); Platelet Count* 197 K/uL (140-440); RDW Coefficient of Variation % 14.7 % (11.5-15.5); Red Blood Count 3.44 m/uL (4.00-5.20); White Blood Count* 6.21 K/uL (4.50-11.00)
[2022-09-06 11:23] LABS: Slide Review Reflex No
[2022-09-06] MEDS: LABETALOL HCL 100 MG TABLET PO ×2 (12:30→21:19)
[2022-09-06] MEDS: ENOXAPARIN 40 MG/0.4 ML INJ SUBCUT (12:30)
[2022-09-06] MEDS: IBUPROFEN 600 MG TABLET PO ×2 (14:33→21:20)
[2022-09-07 00:25] VITALS: BP 118/78; PULSE 61; RESP 16; TEMP 36.6; O2SAT 97
[2022-09-07] MEDS: ACETAMINOPHEN 500 MG TABLET 1000 MG PO ×3 (00:30→15:51)
[2022-09-07] MEDS: CLINDAMYCIN 900 MG/50 ML-D5W IVPB ×3 (04:35→14:28)
[2022-09-07 04:44] VITALS: BP 128/82
[2022-09-07] MEDS: IBUPROFEN 600 MG TABLET PO ×3 (04:51→21:06)
[2022-09-07 07:50] VITALS: BP 133/87; PULSE 57; RESP 20; TEMP 36.8; O2SAT 97
[2022-09-07] MEDS: FERROUS SULFATE 325 MG TABLET PO (07:56)
[2022-09-07] MEDS: LABETALOL HCL 100 MG TABLET PO ×2 (09:00→22:31)
--- NOTE | 2022-09-07 09:36 | PM.OBDSCS1 ---
DS: Providers Provider Date Seen: 09/07/22 Date of admission: 09/03/22 06:58 Primary care physician: Marcus Nelson MD Admitting Clinician: Vannesa Espinoza CNM Attending Physician on discharge: Joann Awad MD Date of Discharge: 09/07/22 DS: Diagnosis Discharge Diagnosis (1) Anemia associated with acute blood loss: Status: Acute Problem details: Uterine atony during , Bakri balloon placed. EBL 920 cc. Continue iron supplementation (2) Severe pre-eclampsia affecting puerperium: Status: Acute Problem details: Diagnosed intrapartum. S/p 24 hours of magnesium sulfate infusion. Normal HELLP labs. (3) endometritis: Status: Acute Problem details: Treated with IV gentamicin and clindamycin until afebrile greater than 36 hours. (4) Anxiety and depression: Status: Acute (5) BMI 45.0-49.9, adult: Status: Acute Problem details: Silver dressing (6) Status post primary low transverse section: Status: Acute Problem details: For failed IOL. Abel Garcia. Apgars: 8/9. (7) COVID-19 virus infection: Status: Acute Problem details: Received IV Remdesivir during hospitalization. (8) History of gestational diabetes: Status: Acute Problem details: 2 hr GTT at 6 weeks Exam Const: Vital Signs, click to edit/add: Vital Signs - 24 hr 09/06/22 10:33 09/06/22 12:15 09/06/22 15:39 Temperature 98.8 F 99.8 F H 98.8 F Pulse Rate [Left P ulse Oximeter] 92 95 85 Respiratory Rate 20 18 18 Blood Pressure [Le ft Arm] 139/84 119/77 117/78 Pulse Oximetry 97 97 97 Oxygen Delivery Me thod Room Air Room Air Room Air 09/06/22 19:19 09/07/22 00:25 09/07/22 04:44 Temperature 97.9 F Pulse Rate [Left P ulse Oximeter] 63 61 Respiratory Rate 16 16 Blood Pressure [Le ft Arm] 139/89 118/78 128/82 Pulse Oximetry 97 97 Oxygen Delivery Me thod Room Air Room Air 09/07/22 07:50 Temperature 98.3 F Pulse Rate [Left P ulse Oximeter] 57 L Respiratory Rate 20 Blood Pressure [Le ft Arm] 133/87 Pulse Oximetry 97 Oxygen Delivery Me thod DS: Data Data Completed and Pending Labs on day of discharge: Labs from last 24 hours 09/06/22 11:14 WBC 6.21 RBC 3.44 L Hgb 10.3 L Hct 31.0 L MCV 90 MCH 30 MCHC 33 RDW Coeff of Shaniqua 14.7 Plt Count 197 Neut % (Auto) 87.8 H Lymph % (Auto) 7.2 L [place] % (Auto) 3.7 Eos % (Auto) 0.0 Baso % (Auto) 0.3 Neut # (Auto) 5.50 Lymph # (Auto) 0.40 L [place] # (Auto) 0.20 Eos # (Auto) 0.00 Baso # (Auto) 0.02 Abs Immat Gran (auto) 0.06 Imm/Tot Granulo (auto) 1.0 Preliminary micro results at discharge 09/05/22 20:48 Urine Culture - Preliminary Urine [place] No growth. OB - DS: Summary Hospital Course Hospital Course: Irina is a 32 yo G1 now P1 woman s/p primary low-transverse section after failed induction of labor on 09/04/2022 in the setting of severe preeclampsia. ? OB Problem List: 1. Severe preeclampsia diagnosed intrapartum.? Status post magnesium sulfate infusion for 24 hours. 2. Uterine atony during , EBL 920 mL.? Bakri balloon placed for 12 hours.? Now with anemia of acute blood loss.? 3. endometritis.? Initial temperature elevation of 101.3 at 7:34 p.m. on 09/05/2022.? Lactate initially elevated, normalized after repeat.? Maintained on gentamicin and clindamycin. 4.? Symptomatic COVID infection.? Short of breath PM of 09/05/2022.? Treated with remdesivir.? Normal oxygen saturations.? 5.? Anemia of acute blood loss.? Ferrous sulfate. 6. Pre- BMI 36.7. ?? ? Recent weight loss/dieting 7. Anxiety/Depression ?? ? Remeron 45 mg daily ?? ? Wellbutrin 150 mg daily (stopped around 16 weeks-increased anxiety) ?? ? Starting Abilify (03/26) ?? ? Seeing therapist/Psychiatrist 8. Gestational Diabetes A1. She had an primary site low-transverse section for indication of failed induction of labor. Intraoperative EBL was 920 mL secondary to uterine atony, and Bakri balloon was placed intraoperatively. She delivered a viable male infant. She is breast feeding. the patient was started on ferrous sulfate for anemia of acute blood loss. Bakri balloon was discontinued. She was diagnosed with endometritis on the evening of 09/05/2022. She was treated with gentamicin clindamycin until afebrile for greater than 36 hours. White blood cell counts normalized on this treatment. In addition, she had an episode of shortness of breath, possibly secondary to anxiety. Chest x-ray was clear. She was treated with IV remdesivir given her positive COVID status. She maintained normal oxygen saturations throughout her course. She was started on Lovenox for thromboprophylaxis, and I will continue this for the next 2 weeks. Today, on postoperative day 3, []. Peripartum Data Procedures: Procedures Operation Date: 09/04/22 21:00 Actual Procedure Side Surgeon p Section Not Applicable Monie Stuart MD Gender: Male Time Spent with Patient Time attestation: Total time spent providing and/or coordinating discharge services: Discharge Plan Discharge Date of Admission: 09/03/22 06:58 Attending Physician on Admission: Vannesa Espinoza Primary Care Provider: Marcus Nelson Discharge Medications: No Action prenat.vits,hung,[id number] Tablet 1 tab PO QDAY docusate sodium [Dulcolax Stool Softener (dss)] 100 mg capsule 100 mg PO BID famotidine 10 mg tablet 10 mg PO QDAY pyridoxine (vitamin B6) 50 mg tablet 50 mg PO DAILY mirtazapine 45 mg tablet 45 mg PO .Bedtime Qty: 30 4RF aspirin 81 mg capsule 81 mg PO DAILY (DME) Test Strips Misc See Rx Instructions .MEDSUPPLY Qty: 100 3RF Rx Instructions: Test blood sugar 4 times daily. (DME) lancets Misc See Rx Instructions .MEDSUPPLY Qty: 100 3RF Rx Instructions: Test blood sugar 4 times daily. (DME) Blood Glucose Meter Misc See Rx Instructions .MEDSUPPLY Qty: 1 0RF Rx Instructions: As directed Follow Up Appointments: Marcus Nelson MD [Primary Care Provider] -
--- NOTE | 2022-09-07 10:07 | P.OBPN_ITS ---
OB - PN: A/P Assessment and Plan (1) Anemia associated with acute blood loss: Problem details: Uterine atony during , Bakri balloon placed. EBL 920 cc. Continue iron supplementation Status: Acute (2) Severe pre-eclampsia affecting puerperium: Problem details: Diagnosed intrapartum. S/p 24 hours of magnesium sulfate infusion. Normal HELLP labs. Status: Acute Assessment and Plan: Continue with labetalol at current dose. Will increase dose with elevated BP. (3) endometritis: Problem details: Treated with IV gentamicin and clindamycin until afebrile greater than 36 hours. Status: Acute Assessment and Plan: Will give one additional dose of clindamycin, then discontinue. (4) Anxiety and depression: Status: Acute (5) BMI 45.0-49.9, adult: Problem details: Silver dressing to be removed one week Status: Acute (6) Status post primary low transverse section: Problem details: For failed IOL. Abel Garcia. Apgars: 8/9. Status: Acute Assessment and Plan: Appropriate post-op course (7) COVID-19 virus infection: Problem details: Received IV Remdesivir during hospitalization. Status: Acute Assessment and Plan: Continue IV Remdesivir until tomorrow; will receive next dose in early AM hours. (8) History of gestational diabetes: Problem details: 2 hr GTT at 6 weeks Status: Acute Plan Comments: Anticipate discharge tomorrow. OB - PN: Subj Subjective Date Seen: 09/07/22 Interval history: Irina is a 32 yo G1 now P1 woman s/p primary low-transverse section after failed induction of labor on 09/04/2022 in the setting of severe preeclampsia. ? OB Problem List: 1. Severe preeclampsia diagnosed intrapartum.? Status post magnesium sulfate infusion for 24 hours. 2. Uterine atony during , EBL 920 mL.? Bakri balloon placed for 12 hours.? Now with anemia of acute blood loss.? 3. endometritis.? Initial temperature elevation of 101.3 at 7:34 p.m. on 09/05/2022.? Lactate initially elevated, normalized after repeat.? Maintained on gentamicin and clindamycin. 4.? Symptomatic COVID infection.? Short of breath PM of 09/05/2022.? Normal CXR. Treated with remdesivir.? Normal oxygen saturations.? 5.? Anemia of acute blood loss.? Ferrous sulfate. 6. Pre- BMI 36.7. ?? ? Recent weight loss/dieting Lovenox for thromboprophylaxis . 7. Anxiety/Depression ?? ? Remeron 45 mg daily ?? ? Wellbutrin 150 mg daily (stopped around 16 weeks-increased anxiety) ?? ? Starting Abilify (03/26) ?? ? Seeing therapist/Psychiatrist 8. Gestational Diabetes A1. She had an primary site low-transverse section for indication of failed induction of labor. Intraoperative EBL was 920 mL secondary to uterine atony, and Bakri balloon was placed intraoperatively. She delivered a viable male infant. She is breast feeding. Narrative: She is feeling almost back to normal today. She was started on labetalol 100 mg BID yesterday, and BPs have all been within high-normal ranges since. She is tolerating oral iron. She has been afebrile since the evening of 09/05. Her last dose of gentamicin was just after midnight, and her last of clindamycin was at 0430. She continues on daily prophylactic Lovenox. Pain is well controlled. Almost no bleeding. She is ambulating without difficulty. Tolerating regular diet. She has had BM. Baby will need to be kept at least until tomorrow for bili lights. OB - PN: Obj Exam Physical Exam: Vital signs: Temp Pulse Resp BP Pulse Ox O2 Del Method 98.3 F 57 L 20 133/87 97 09/07/22 07:50 09/07/22 07:50 09/07/22 07:50 09/07/22 07:50 09/07/22 07:50 09/07/22 00:25 Narrative: General: Pleasant, no acute distress Heart: Regular rate and rhythm, no murmur or gallop Lungs: Clear to auscultation bilaterally Abdomen: Soft, nontender, fundus well below umbilicus, bruising noted in large swath over dressing, duller in color than yesterday Dressing: silver dressing dry and intact Lower extremities: 3+ edema bilaterally, no erythema OB - PN: Obj Data Labs Labs: Laboratory Results - last 24 hr 09/06/22 11:14 WBC 6.21 RBC 3.44 L Hgb 10.3 L Hct 31.0 L MCV 90 MCH 30 MCHC 33 RDW Coeff of Shaniqua 14.7 Plt Count 197 Neut % (Auto) 87.8 H Lymph % (Auto) 7.2 L Hickman % (Auto) 3.7 Eos % (Auto) 0.0 Baso % (Auto) 0.3 Neut # (Auto) 5.50 Lymph # (Auto) 0.40 L Hickman # (Auto) 0.20 Eos # (Auto) 0.00 Baso # (Auto) 0.02 Abs Immat Gran (auto) 0.06 Imm/Tot Granulo (auto) 1.0
[2022-09-07] MEDS: ENOXAPARIN 40 MG/0.4 ML INJ SUBCUT ×2 (12:00→12:22)
[2022-09-07 12:19] VITALS: BP 123/80; PULSE 77; RESP 20; TEMP 36.8; O2SAT 99
[2022-09-07] MEDS: MULTIVITAMIN/MINERALS 1 TABLET 1 TAB PO (15:51)
[2022-09-07 15:53] VITALS: BP 130/75; PULSE 69; RESP 16; TEMP 36.6; O2SAT 98
[2022-09-07 21:05] VITALS: BP 141/85
[2022-09-08 00:06] VITALS: BP 138/82; PULSE 61; RESP 16; TEMP 36.6; O2SAT 98
[2022-09-08] MEDS: ACETAMINOPHEN 500 MG TABLET 1000 MG PO ×2 (00:14→07:51)
[2022-09-08 04:57] VITALS: BP 142/85
[2022-09-08] MEDS: IBUPROFEN 600 MG TABLET PO (05:00)
[2022-09-08 07:32] VITALS: BP 163/79; PULSE 58; RESP 18; TEMP 36.6; O2SAT 100
[2022-09-08] MEDS: FERROUS SULFATE 325 MG TABLET PO (07:52)
[2022-09-08] MEDS: LABETALOL HCL 100 MG TABLET 200 MG PO (08:49)
[2022-09-08 08:51] VITALS: BP 132/85
--- NOTE | 2022-09-08 08:59 | PM.OBDSCS1 ---
DS: Providers Provider Date Seen: 09/08/22 Date of admission: 09/03/22 06:58 Primary care physician: Marcus Nelson MD Admitting Clinician: Vannesa Espinoza CNM Attending Physician on discharge: Tila Bermudez MD Date of Discharge: 09/08/22 DS: Diagnosis Discharge Diagnosis (1) History of gestational diabetes: Status: Acute Problem details: 2 hr GTT at 6 weeks (2) Anemia associated with acute blood loss: Status: Acute Problem details: Uterine atony during , Bakri balloon placed. EBL 920 cc. Continue iron supplementation (3) Severe pre-eclampsia affecting puerperium: Status: Acute Problem details: Diagnosed intrapartum. S/p 24 hours of magnesium sulfate infusion. Normal HELLP labs. (4) endometritis: Status: Acute Problem details: Treated with IV gentamicin and clindamycin until afebrile greater than 36 hours. (5) Anxiety and depression: Status: Acute (6) BMI 45.0-49.9, adult: Status: Acute Problem details: Silver dressing to be removed one week (7) Status post primary low transverse section: Status: Acute Problem details: For failed IOL. bAel Garcia. Apgars: 8/9. (8) COVID-19 virus infection: Status: Acute Problem details: Received IV Remdesivir during hospitalization. Exam Narrative: Exam Narrative: VITAL SIGNS: As noted above. GENERAL APPEARANCE: Alert, cooperative female in no acute distress. MOOD & AFFECT: Normal. Chest: Clear to auscultation bilaterally, regular rate rhythm of the heart. ABDOMEN: Soft, non-distended and nontender. Silver dressing in place, clean and dry. : Normal lochia. EXTREMITIES: Bilateral pitting edema +1. Well perfused. Nontender. Const: Vital Signs, click to edit/add: Vital Signs - 24 hr 09/07/22 12:19 09/07/22 15:53 09/07/22 21:05 Temperature 98.2 F 97.9 F Pulse Rate [Left P ulse Oximeter] 77 69 Respiratory Rate 20 16 Blood Pressure [Le ft Arm] 123/80 130/75 141/85 H Pulse Oximetry 99 98 Oxygen Delivery Me thod Room Air Room Air 09/08/22 00:06 09/08/22 04:57 09/08/22 07:32 Temperature 97.8 F 97.8 F Pulse Rate [Left P ulse Oximeter] 61 58 L Respiratory Rate 16 18 Blood Pressure [Le ft Arm] 138/82 142/85 H 163/79 H Pulse Oximetry 98 100 Oxygen Delivery Me thod Room Air Room Air 09/08/22 08:51 Temperature Pulse Rate [Left P ulse Oximeter] Respiratory Rate Blood Pressure [Le ft Arm] 132/85 Pulse Oximetry Oxygen Delivery Me thod OB - DS: Summary Hospital Course Hospital Course: The patient is a 32 year old G 1 P 1001 at 39 6/7 weeks gestation that was admitted to the Center on 09/03/22 for induction of labor. She had an complicated delivery. She delivered a viable male . She is breast feeding. Admission complicated by diagnosis of COVID, currently status post remdesivir. Intrapartum diagnosis of preeclampsia with severe features, status post 24 hours magnesium sulfate for seizure prophylaxis after delivery. She has continued with elevated blood pressures not on the severity range, she was started on labetalol and this will be increased today to 200 mg twice a day. Denies any headaches, visual changes or pain in her upper abdomen. Patient had a severely elevated blood pressures this morning that was repeated and found normal. Intrapartum/ also complicated by endometritis treated with IV antibiotic therapy, she has been afebrile for more than 48 hours. Anemia, currently treated with oral iron. Denies any dizziness, lightheadedness, shortness of breath walking around. Patient has been eating well without any nausea or vomiting, urinating well without any dysuria, urgency or frequency. Patient has had bowel movement. Peripartum Data Procedures: Procedures Operation Date: 09/04/22 21:00 Actual Procedure Side Surgeon p Section Not Applicable Monie Stuart MD complications: pelvic infection and uterine atony Gender: Male Infant A Gender: Male Infant Discharge Plan: Home Status at Discharge Functional status at discharge: independent ambulation Overall status at discharge: patient is progressing back to baseline Time Spent with Patient Time attestation: Total time spent providing and/or coordinating discharge services: Time spent: Less than 30 minutes Discharge Plan Discharge Disposition: Home, Self-Care Date of Admission: 09/03/22 06:58 Attending Provider on Discharge: Tila Bermudez Primary Care Provider: Marcus Nelson Condition: Stable Anticipated Discharge Date/Time: 09/08/22 15:00 Discharge Medications: New acetaminophen 500 mg Tablet 1,000 mg PO Q6H PRN (Reason: Pain) Qty: 30 0RF ferrous sulfate 325 mg (65 mg iron) Tablet 325 mg PO DAILYWM Qty: 30 0RF ibuprofen 600 mg Tablet 600 mg PO Q6H PRN (Reason: Pain) Qty: 30 0RF labetalol 100 mg Tablet 200 mg PO BID Qty: 60 0RF (DME) blood pressure monitor Kit See Rx Instructions .Route Qty: 1 0RF Rx Instructions: As directed Continued prenat.vits,hung,hcp-yiqo-pvrtn Tablet 1 tab PO QDAY docusate sodium [Dulcolax Stool Softener (dss)] 100 mg capsule 100 mg PO BID famotidine 10 mg tablet 10 mg PO QDAY mirtazapine 45 mg tablet 45 mg PO .Bedtime Qty: 30 4RF aspirin 81 mg capsule 81 mg PO DAILY Discontinued pyridoxine (vitamin B6) 50 mg tablet 50 mg PO DAILY (DME) Test Strips Misc See Rx Instructions .MEDSUPPLY Qty: 100 3RF Rx Instructions: Test blood sugar 4 times daily. (DME) lancets Misc See Rx Instructions .MEDSUPPLY Qty: 100 3RF Rx Instructions: Test blood sugar 4 times daily. (DME) Blood Glucose Meter Misc See Rx Instructions .MEDSUPPLY Qty: 1 0RF Rx Instructions: As directed Discharge Orders: Discharge Order (Routine); Ordered 09/08/22 Ordered By: Tila Bermudez Patient Education: Preeclampsia and Eclampsia After Delivery (GEN), OB Over the Counter Medication Information, OB /Breast Feeding Activity Level: Activity as Tolerated, No strenuous activity and No Weight Bearing Activity Detail: No heavy lifting more than 15-20 pounds x 6 weeks, nothing vaginally for 6 weeks. Continue to monitor blood pressures at home, notify clinic if readings more than 150s systolic, or more than 100s diastolic. Of if any of the following symptoms: persistent headaches, visual changes or pain in the upper abdomen. Discharge Diet: Regular Follow Up Appointments: Marcus Nelson MD [Primary Care Provider] - Forms: MyHealth Info Instructions Discharge Comments: Follow up in clinic for blood pressure check and silver dressing removal in 3-5 days.
[2022-09-08] MEDS: ENOXAPARIN 40 MG/0.4 ML INJ SUBCUT (12:18)
[2022-09-08 13:00] VITALS: BP 142/83; PULSE 58; RESP 18; O2SAT 100
--- NOTE | 2022-09-12 17:44 | PC.NURSE ---
RN administered Enoxaparin 40MG Sub Q, abdomen, on 09/05/22 at 12:00.
== END 2022-09-08 15:37 | disposition home or self-care (01) | DRG 786 ==
PROVIDERS: Obstetrics & Gynecology; Admitting Provider Advanced Practice Midwife; PCP Family Medicine; Visit Provider Advanced Practice Midwife
PROC: 10D00Z1 Extraction of Products of Conception, Low, Open Approach (ICD-10-PCS; CPT 59514; principal; 2022-09-04 20:45)
DX: O24.420 Gestational diabetes mellitus in childbirth, diet controlled (principal); U07.1 COVID-19; O98.52 Other viral diseases complicating childbirth; O86.12 Endometritis following delivery; O72.1 Other immediate postpartum hemorrhage; D62 Acute posthemorrhagic anemia; O90.81 Anemia of the puerperium; F41.0 Panic disorder [episodic paroxysmal anxiety]; O61.0 Failed medical induction of labor; O62.0 Primary inadequate contractions; O14.14 Severe pre-eclampsia complicating childbirth; O99.344 Other mental disorders complicating childbirth; F41.8 Other specified anxiety disorders; O99.214 Obesity complicating childbirth; E66.9 Obesity, unspecified; Z37.0 Single live birth; Z3A.39 39 weeks gestation of pregnancy
CPT/HCPCS: 1967; 1968; 36415; 59200; 64488; 71045; 76942; 80048; 81003; 81015; 82565; 82570; 83605; 84156; 84450; 84460; 84520; 85025; 85027; 85384; 85610; 86850; 86900; 86901; 86922; 87086; 87635; 88307; 99140; A9153; A9270; C9290; J0690; J1100; J1580; J1650; J1885; J2270; J2274; J2405; J2590; J2795; J3010; J3475; J3490; J3590; J7042; J7050; J7120; S0020; S0077

== ENCOUNTER 2022-10-16 13:09 | Outpatient (CLI) | payer MEDICAID, SELFPAY ==
[2022-10-16 08:48] LABS: Glucose Fasting Check 95 mg/dl (60-115)
[2022-10-16 12:29] LABS: Glucose Fasting 89 mg/dl (70-95)
[2022-10-16 12:29] LABS: Glucose 2 Hour 98 mg/dl (70-95)
== END 2022-10-16 13:10 | disposition home or self-care (01) ==
PROVIDERS: PCP Family Medicine; Visit Provider Advanced Practice Midwife
DX: Z39.2 Encounter for routine postpartum follow-up (principal); Z86.32 Personal history of gestational diabetes
CPT/HCPCS: 82947; 82950

== ENCOUNTER 2022-10-28 15:43 | Outpatient (CLI) | payer OTHER, SELFPAY ==
[2022-10-28 17:14] LABS: Chloride* 106 mmol/L (96-114); Potassium* 4.8 mmol/L (3.6-5.1); Sodium* 140 mmol/L (135-149)
[2022-10-28 17:16] LABS: Creatinine* 0.8 mg/dL (0.5-1.5); Estimated Glomerular Filt Rate 102 ml/min
[2022-10-28 17:17] LABS: Blood Urea Nitrogen* 14 mg/dL (5-24); Calcium* 9.7 mg/dL (8.4-10.6); Carbon Dioxide* 27 mmol/L (20-32); Glucose* 84 mg/dL (60-115)
== END 2022-10-28 15:44 | disposition home or self-care (01) ==
PROVIDERS: PCP Family Medicine; Visit Provider Family Medicine
DX: I10 Essential (primary) hypertension (principal); D62 Acute posthemorrhagic anemia; Z13.29 Encounter for screening for other suspected endocrine disorder
CPT/HCPCS: 80048; 84443

== ENCOUNTER 2023-08-24 08:15 | Outpatient (CLI) | payer OTHER, SELFPAY | END 2023-08-24 08:16 | disposition home or self-care (01) | LOC: NFLDREF 08-26 10:03 | PROVIDERS: PCP Family Medicine; Referring Provider Family Medicine; Visit Provider Family Medicine | DX: E78.5 Hyperlipidemia, unspecified (principal); E66.9 Obesity, unspecified; Z13.29 Encounter for screening for other suspected endocrine disorder; Z13.1 Encounter for screening for diabetes mellitus | CPT/HCPCS: 80053; 80061; 84439 ==

== ENCOUNTER 2024-05-02 11:32 | Outpatient (CLI) | payer BC, SELFPAY ==
--- OUTSIDE RECORDS SUMMARY | 2024-05-02 11:35 | XMS_ITS | Clinical Summary ---
Author Organization [facility] Address [place], [place] [address] Care Team Providers Care Habilitative Interventionist Name Role Phone Marcus Nelson MD Primary Care Provider [phone] Allergies Active Allergy Reactions Criticality Noted Date Comments Codeine Nausea Only 02/16/2007 Hydrocodone-Acetaminophen Nausea Only 5 Medications Medication Sig Dispensed Refills Start Date End Date Status mirtazapine (REMERON) 45 mg tabletIndications:LILLY (generalized anxiety disorder),Psychophysi ological insomnia Take 1 Tablet (45 mg) by mouth at bedtime. 30 Tablet 2 02/20/2022 Active ARIPiprazole (Abilify) 2 mg tabletIndications:LILLY (generalized anxiety disorder),Major depressive disorder, recurrent episode, moderate (HC) Take 1 Tablet (2 mg) by mouth once daily. 30 Tablet 2 02/20/2022 Active Active Problems Problem Noted Date Diagnosed Date Major depressive disorder, recurrent episode, mo derate 09/12/2015 Cannabis dependence, in remission 12/15/2011 LILLY (generalized anxiety disorder) 11/19/2009 Panic disorder without agoraphobia 10/24/2009 Resolved Problems Problem Noted Date Diagnosed Date Resolved Date Controlled substance agreement signed 06/16/2018 01/15/2022 Overview: Signed by Joann Buckner MD 04/06/18. Valdez Archibald LPN, 06/16/2018, 7:31 AM Controlled substance agreement signed 04/08/2018 01/15/2022 Controlled substance agreement signed 04/13/2017 01/15/2022 Overview: Signed: 04/02/16 Dr. Magen Aquino MD / psychiatry Depressive disorder, not elsewhere classified 01/09/20 11 09/12/2015 Cannabis dependence, continuous 09/09/2010 12/15/2011 Immunizations Name Administration Dates Next Due MMR 12/22/2003 Family History Medical History Relation Name Comments Psychiatric illness Father anxiety Stroke Father Psychiatric illness Maternal Aunt anxiety Relation Name Status Comments Father Alive Half-Brother Alive Half-Sister Alive Maternal Aunt Mother Alive Social History Tobacco Use Types Packs/Day Years Used Date Smoking Tobacco: Never Smokeless Tobacco: Never Tobacco Cessation:Counseling Given: Yes Alcohol Use Standard Drinks/Week Comments No 0 (1 standard drink = 0.6 oz pur e alcohol) PHQ-2 Answer Date Recorded PHQ-2 TOTAL SCORE 1 02/19/2022 Social Connections Answer Date Recorded Frequency of Communication with Friends and Fami ly Not on file 07/29/2022 Sex and Gender Information Value Date Recorded Sex Assigned at Female 12/12/2021 8:07 AM TOWER DIRECTOR Gender Identity Female 12/12/2021 8:07 AM TOWER DIRECTOR Sexual Orientation Not on file Obstetrics History Last Filed Vital Signs Vital Sign Reading Time Taken Comments Blood Pressure 130/86 06/14/2019 12:44 PM CDT Pulse 65 05/03/2020 3:18 PM CDT patient reported Temperature - - Respiratory Rate - - Oxygen Saturation 98% 09/12/2015 10: 35 AM TOWER DIRECTOR Inhaled Oxygen Concentration - - Weight 105.2 kg (232 lb) 05/03/2020 3:1 8 PM CDT patient reported Height 162.6 cm (5' 4) 05/03/2020 3:18 PM CDT patient reported Body Mass Index 39.82 05/03/2020 3:18 PM CDT Plan of Treatment Health Maintenance Due Date Last Done Comments Tdap 2003 HIV for age 15-65 2007 Hepatitis C screening for age 18-79 2010 BMI (ht and wt on same day) for age 18+ 05/03/2021 05/03/2020, 08/26/2018, 04/02/2016, Additional history exists Tetanus booster 01/13/2023 01/13/2013 (Comp leted outside of [facility]) Depression screening for age 12+ 02/20/2023 02/20/2022, 01/16/2022, 12/12/2021, Additional history exists COVID-19 vaccine series ( season) 2023 09/02/2021, 03/05/2021, 02/12/2021 Influenza for age 9-49 06/19/2024 Pap test for age 21-65 10/16/2025 , 10/16/2022, 05/28/2017, Additional history exists Pneumococcal series for age 6-64 Aged Out No longer eligible based on patient's age to complete this topic Procedures Procedure Name Priority Date/Time Associated Diagnosis Comments HPV THIN PREP Routine 10/16/2022 12:00 PM TOWER DIRECTOR from Last 3 Months or Most Recently Relevant to Health Maintenance Results * HPV HIGH RISK (10/16/2022 12:00 PM TOWER DIRECTOR) TYPE 16 Negative Negative 10/21/2022 1:58 PM TOWER DIRECTOR [facility] TYPE 18 Negative Negative 10/21/2022 1:58 PM TOWER DIRECTOR [facility] OTHER HIGH RISK TYPES Negative Negative 10/21/2022 1:58 PM TOWER DIRECTOR [facility] Other VAGINAL SWAB / Unknown 10/16/2022 12:00 PM TOWER DIRECTOR 10/18/2022 12:59 PM TOWER DIRECTOR Narrative [facility] - 10/21/2022 1:58 PM TOWER DIRECTOR HPV types 16, 18, 31, 33, 35, 39, 45, 51, 52, 56, 58, 59, 66 and 68 DNA were undetectable or below the pre-set threshold. Methodology: Nevaeh Ash 4800 HPV Test Sparkle Wheeler CNM [facility] [address] [place] [address], [place] from Last 3 Months or Most Recently Relevant to Health Maintenance Care Teams Habilitative Interventionist Relationship Specialty Start Date End Date Marcus Nelson MD PCP - General Family Practice 04/02/16
== END 2024-05-02 11:33 | disposition home or self-care (01) ==
PROVIDERS: PCP Family Medicine; Visit Provider Family Medicine
DX: I10 Essential (primary) hypertension (principal); E78.5 Hyperlipidemia, unspecified; E66.01 Morbid (severe) obesity due to excess calories; K76.0 Fatty (change of) liver, not elsewhere classified; Z13.29 Encounter for screening for other suspected endocrine disorder; Z68.42 Body mass index [BMI] 45.0-49.9, adult
CPT/HCPCS: 80053; 80061; 84439